=== PATIENT | female | born 1955 | race Caucasian/White ===

== ENCOUNTER 2017-02-27 19:21 | Inpatient (IN) | payer BC, OTHER ==
--- NOTE | ~2017-02-27 | DS ---
Discharge Summary [facility] [address] [place]. [address] NAME: EMMANUEL BAER : 51 STATUS : ADM IN [facility]#: [id number] AGE: 61 ADM/REG DATE : 02/27/17 MR#: [id number] REPORT SERV DATE: 03/04/17 DICTATED BY: LARRY LAN DATE: 03/04/17 REPORT STATUS : Draft TRANSCRIBED BY: MODL DATE: 03/04/17 ADMISSION DATE: 02/27/2017 DISCHARGE DATE: 03/04/2017 CONSULTANTS: 1. Tristan Tidwell M.D. 2. Chioma Brown MD, GI. 3. Grant Pulido MD, GI. DISCHARGE DIAGNOSES: 1. Obstructive jaundice with narrowing in the lower common bile duct, atypical cells. 2. Chronic obstructive pulmonary disease in a smoker and oxygen dependent on 3 liters. 3. Suspected obstructive sleep apnea with obesity hypoventilation syndrome. 4. Bipolar disorder. 5. Hypertension. 6. Peripheral arterial disease with previous right lower extremity bypass. 7. Recent abscess tooth, left posterior molar. 8. Obesity with body mass index of 43.9. 9. Previous medication induced encephalopathy. HISTORY: This patient presented to the emergency room at [facility] with a new onset of jaundice. This was painless jaundice. She also had very dark urine. When she came to the emergency room, she was noted to have elevated total bilirubin, as well as dilation of the common bile duct on CT scan. Because of this, she was referred to us for inpatient care. Specifically, when she came to the emergency room on 02/27/2017, her total bilirubin was 8.6, alkaline phosphatase was 572, ALT was 201, AST was 136. A CT in the emergency room on admission, revealed intrahepatic and extrahepatic biliary duct dilatation. The common bile duct was dilated up to 16 mm. No visible obstructing stone or mass was noted. Liver and spleen were upper normal size, 3.3 cm lipoma in the proximal transverse colon and bilateral nonobstructing small kidney stones. Chest x-ray revealed chronic scarring in the lung bases. Otherwise, unremarkable. She was admitted to our Medical Service. She had an MRCP done showing evidence of previous cholecystectomy, also confirming intra and extrahepatic biliary duct dilatation, and there was a question of some viscous bile versus a tiny stone in the common bile duct. There was a significant retroperitoneal adenopathy, reported to be in the left to the aorta, this is what is described in the body of the dictation, but in the conclusion the radiologist stated that the retroperitoneal adenopathy was on the right side. The patient underwent abdominal ultrasound showing hepatosplenomegaly, dilatation of the common duct, increased liver echo changes, and possibly early cirrhotic changes. The patient was seen in consultation by GI, Dr. Chioma Brown. The patient had acute hepatitis panel, it was negative for A, B, and C, her hepatitis B surface antibody was 6.66. Dr. Brown recommended ERCP and her partner Dr. Tidwell did the ERCP on 03/01/2017. He put in a 10-Eritrean 7 cm biliary stent. He did some brushings and biopsies. He then asked Dr. Grant Pulido to do an endoscopic ultrasound with possible biopsies and this was done on 03/02/2017. No pancreatic mass or cyst noted. Stent was noticed in the common bile duct and it extended into the bifurcation of the right Discharge Summary [address] [address] NAME: EMMANUEL BAER : 51 STATUS : ADM IN PAT#: [id number] AGE: 61 ADM/REG DATE : 02/27/17 MR#: [id number] REPORT SERV DATE: 03/04/17 DICTATED BY: LARRY LAN DATE: 03/04/17 REPORT STATUS : Draft TRANSCRIBED BY: MODKayleen DATE: 03/04/17 and left hepatic ducts. There was suggestion of either swelling or stricture of the lower third of the main bile duct with a discrete area of hypoechogenicity around the common bile duct stent prior to exiting the papilla. Fine-needle aspiration was performed. No lymphadenopathy was noted on this examination. There was diffuse wall thickening, endoscopically seen at the ampulla, possibly related to recent ERCP procedure. Pathology reports showed ampullary biopsies with benign small bowel mucosa. Bile duct brushings revealed significant atypia with overlapping mild acute inflammation. The focal atypia groups were stated to be in contrast to the benign mucosa and are significant and for which malignancy is suspected, but not diagnostic. The biopsies from the lower third of the main bile duct structure that were submitted by Dr. Pulido, the specimen had scant cellularity and was not diagnostic. GI recommends follow up in their office in the next two weeks. The patient's CA-19-9 was elevated at 570. The CEA level was 5.8. After stents placement the total bilirubin improved significantly. At its peak it was 10.8 on 03/01/2017, by 03/03/2017 it was down to 2.6. The alkaline phosphatase improved to 517, ALT improved to 105, and AST normalized at 31. The patient had no significant right upper quadrant pain. After her first ERCP, she had some musculoskeletal pain in her left upper quadrant that she could reproduce by turning, doing a sit up, or coughing. She is able the eat well, no nausea, no vomiting, no fever. We did keep her on antibiotics for a few days prior to and during these procedures. Blood cultures no growth. Urine culture 50,000 Klebsiella pneumoniae which is suspected to be a contaminant and asymptomatic bacteria. When the patient was taken off oxygen her O2 sats would drop. She states in the past, she was using oxygen at bedtime only and occasionally p.r.n. for shortness of breath. On 03/03/2017, at rest her O2 saturation 84% on room air, so, we put her on 3 L, and her O2 saturation improved to 93%. We therefore asked Case Management to notify her home oxygen supplier that she still needs oxygen, but now on a continuous basis at 3 L. Case management was also asked to help with medication cost and with transportation facilitation. At the time of discharge, she is ambulatory, feels comfortable, no abdominal pain, eating well. She knows about the importance of stopping smoking. She also was advised by me that if she continues to smoke that she must not do that while the oxygen is on and we talked about how she could have serious matthews to herself. She agrees to not do this. DISCHARGE MEDICATIONS: Norvasc 10 mg daily, gabapentin 800 mg q.i.d., Lamictal 150 mg b.i.d., lisinopril 20 mg daily added for blood pressure, Seroquel 400 mg every evening which is a chronic medicine, Spiriva one capsule inhaled daily, ProAir two puffs q.i.d. p.r.n. shortness of breath, Symbicort 160/4.5 two puffs twice a day, Tylenol 650 q.6 hours p.r.n. mild pain, [place] 5/325 q.i.d. p.r.n. more intense pain #25 no refill, glipizide 10 mg b.i.d., metformin 1000 mg b.i.d., Ativan 1 mg one or two p.o. q.12 hours p.r.n. anxiety or insomnia which is a chronic medicine for her, Lasix 40 mg daily p.r.n. edema, KCl 20 mEq daily if Lasix taken, Pravachol 20 mg every evening, lactulose 30 mL p.o. daily p.r.n. Discharge Summary [place] [id number] [place]. [address] NAME: EMMANUEL BAER : 51 STATUS : ADM IN [facility]#: [id number] AGE: 61 ADM/REG DATE : 02/27/17 MR#: [id number] REPORT SERV DATE: 03/04/17 DICTATED BY: ALRRY LAN DATE: 03/04/17 REPORT STATUS : Draft TRANSCRIBED BY: DENIS DATE: 03/04/17 constipation. FOLLOWUP: She is to follow up with her PCP, Dr. Rosalba Garza, in two weeks and with GI Dr. Tidwell also in two weeks. I spent 45 minutes today with the patient and with her discharge plan. BENSON/DENIS Larry Lan M.D. / [id number] CC: MD Flavio Segura II, II, M.D. Henry Paik, M.D. Oana L. Andreescu, M.D.
--- NOTE | ~2017-02-27 | EGD ---
EGD REPORT [facility] [address] [address] NAME: RAMONA BAER : 51 STATUS : ADM IN PAT#: [id number] AGE: 61 ADM/REG DATE : 02/27/17 MR#: [id number] REPORT SERV DATE: 03/02/17 DICTATED BY: GRANT LIMA DATE: 03/02/17 REPORT STATUS : Draft [facility]ED [facility]: [facility] DATE: 03/02/17 Endoscopy Center Patient Name: Ramona Baer Date of : 1955 Attending MD: GRANT LIMA MD Procedure Date No Time: 03/02/2017 Procedure: Upper EUS Indications: Suspected solid pancreatic neoplasm, Jaundice Medicines: General Anesthesia, Monitored Anesthesia Care Complications: No immediate complications. Estimated blood loss: Minimal. Procedure: Pre-Anesthesia Assessment: - ASA Grade Assessment: III - A patient with severe systemic disease. After obtaining informed consent, the endoscope was passed under direct vision. Throughout the procedure, the patient's blood pressure, pulse, and oxygen saturations were monitored continuously. The Endoscope was introduced through the mouth, and advanced to the second part of duodenum. The GIF [id number] was introduced through the mouth, and advanced to the second part of duodenum. The upper EUS was accomplished without difficulty. The patient tolerated the procedure well. Findings: Endosonographic Finding : There was no sign of significant endosonographic abnormality in the entire pancreas. No masses, no cysts. One stent was visualized endosonographically in the common bile duct. Extension of the stent was noted where the hepatic duct bifurcates into the right and left hepatic ducts. There was a suggestion of either swelling or a stricture in the lower third of the main bile duct with a discreet area of hypoechogenicity around the CBD stent prior to exiting the papilla. Fine needle aspiration was performed. Color Doppler imaging was utilized prior to needle puncture to confirm a lack of significant vascular structures within the needle path. Six passes were made with the 25 gauge needle using a transduodenal approach. Some passes were made with a stylet. A preliminary cytologic examination was not performed. Final cytology results are pending. Estimated blood loss was minimal. Endosonographic imaging of the visualized portion of the liver showed no abnormalities. No lymph nodes were visualized in the celiac region (level 20), perigastric region and peripancreatic region. Diffuse wall thickening was visualized endosonographically in the EGD REPORT [address] [address] NAME: RAMONA BAER : 51 STATUS : ADM IN [facility]#: [id number] AGE: 61 ADM/REG DATE : 02/27/17 MR#: [id number] REPORT SERV DATE: 03/02/17 DICTATED BY: GRANT LIMA DATE: 03/02/17 REPORT STATUS : Draft TRANSCRIBED BY: [employer] DATE: 03/02/17 ampulla, but no mass was seen. Possibly related to trauma from recent ERCP vs small adenomatous tissue. A limited doppler examination was performed and revealed no significant vascular abnormalities. Impression: - Normal pancreas - CBD stent with swelling vs stricture in the distal duct with hypoechogeneic tissue surrounding the stent - FNA for cytology - Enlarged ampulla... ERCP trauma vs adenomatous tissue - Previously biopsied - Otherwise normal examination Recommendation: - [facility] patient to [facility]. - Await cytology results. - Clear liquid diet today. Procedure Code(s): --- Professional --- 10393, Esophagogastroduodenoscopy, flexible, transoral; with transendoscopic ultrasound-guided intramural or transmural fine needle aspiration/biopsy(s) (includes endoscopic ultrasound examination of the esophagus, stomach, and either the duodenum or a surgically altered stomach where the jejunum is examined distal to the anastomosis) Diagnosis Code(s): --- Professional --- R93.2, Abnormal findings on diagnostic imaging of liver and biliary tract K83.8, Other specified diseases of biliary tract R17, Unspecified jaundice CPT copyright 2013 [employer]. All rights reserved. The codes documented in this report are preliminary and upon medical records coder review may be revised to meet current compliance requirements. Grant Lima MD GRANT LIMA MD 03/02/2017 9:57 AM This report has been signed electronically. Number of Addenda: 0 Note Initiated On: 03/02/2017 8:07 AM Scope Withdrawal Time 0 hours 0 minutes 0 seconds EGD REPORT [facility] [address] [place] [address] NAME: RAMONA BAER : 51 STATUS : ADM IN PAT#: [id number] AGE: 61 ADM/REG DATE : 02/27/17 MR#: [id number] REPORT SERV DATE: 03/02/17 DICTATED BY: GRANT LIMA DATE: 03/02/17 REPORT STATUS : Draft [facility]ANSCRIBED BY: [facility] DATE: 03/02/17 [address] [place] [address]
--- NOTE | ~2017-02-27 | HP ---
History And Physical [place] [id number] [facility] [place]. [address] NAME: EMMANUEL BAER : 51 STATUS : ADM IN [facility]#: [id number] AGE: 61 ADM/REG DATE : 02/27/17 MR#: [id number] REPORT SERV DATE: 02/27/17 DICTATED BY: RAMIREZ LOVING DATE: 02/27/17 REPORT STATUS : Draft TRANSCRIBED BY: MODL DATE: 02/27/17 DATE OF ADMISSION: 02/27/2017 CHIEF COMPLAINT: Yellow eyes and skin. HISTORY OF PRESENT ILLNESS: This is a 61-year-old female, who presents to the emergency room at [facility] with the above-mentioned complaint. History is obtained from the patient and reviewing data available on the [employer] system. According to Ms Baer, she had been in her usual state of health until today in the afternoon when a friend came over and knocked on her door. She opened the door and the friend looked at her twice and was concerned that her eyes looked yellow. She checked in a mirror and indeed she was and her skin appeared to be slightly yellowish as well. During this time, she has not had any nausea or vomiting, no other signs of jaundice, did not have any pruritus or pain in her abdomen. On looking back, she noticed that her urine had appeared brownish in color. She has had no other symptoms at all. She then decided to come to the emergency room to be evaluated. In the emergency room, initial workup revealed jaundice, and she had intrahepatic and extrahepatic dilatation of the common bile duct up to [address] scan of her abdomen and pelvis. There was no visible obstruction. Hospitalist Service is asked to admit her for further evaluation and treatment. At the time of my evaluation, she denied any chest pain or palpitations. She had no orthopnea. She had no cough, hemoptysis, night sweats, or weight loss. She denied any recent falls or loss of consciousness. She did not have any fevers or chills at home. Denied any nausea, vomiting, diarrhea, hematemesis, hematochezia, or hematuria. No other history of recent travel or exposures other than those mentioned above. PAST MEDICAL HISTORY: Significant for history of COPD with tobacco use currently, history of bipolar disorder, diabetes mellitus with A1c of 7.8, history of essential hypertension, peripheral arterial disease with femoral popliteal bypass in the right lower extremity. SOCIAL HISTORY: She has about 80-pack year history of smoking and continues to do so, although she says she has cut back now a days. She used to drink heavily, but has not had any in about 30 to 40 years now. She denies any recreational drug use. FAMILY HISTORY: Noncontributory. MEDICATIONS: At home are reviewed by me in the chart today and reordered by me. REVIEW OF SYSTEMS: As in history of present illness. All other systems were reviewed in detail and are quite unremarkable. PHYSICAL EXAMINATION: History And Physical [address] [address] NAME: EMMANUEL BAER : 51 STATUS : ADM IN [facility]#: [id number] AGE: 61 ADM/REG DATE : 02/27/17 MR#: [id number] REPORT SERV DATE: 02/27/17 DICTATED BY: RAMIREZ LOVING DATE: 02/27/17 REPORT STATUS : Draft TRANSCRIBED BY: DENIS DATE: 02/27/17 GENERAL: This is a pleasant 61-year-old, not in any acute distress. HEENT: Her head is atraumatic, normocephalic. She is alert, awake, and oriented to time, place, and person. Her pupils are equal, reacting to light and accommodating. External ocular muscles are intact. Membranes are moist and pink. Skin is yellow and sclerae are icteric as well. NECK: Supple with no jugular venous distention, lymphadenopathy, or thyromegaly. LUNGS: Clear to auscultation with no wheezes, rubs, or crackles. HEART: Heart sounds are regular with no murmurs, rubs, or gallops. ABDOMEN: Soft, nontender. Bowel sounds are present. EXTREMITIES: Show no cyanosis, clubbing, or edema. NEUROLOGIC: Grossly intact. No focal sensory or motor deficits. Higher functions appear intact. Gait is not examined. VITAL SIGNS: Her vital signs today show a temperature of 98 degrees Fahrenheit, pulse 80, respirations 16 a minute, blood pressure is 105/51, oxygen saturations are 93% on room air. LABORATORY DATA: Reviewed on the [employer] system showed a sodium of 139, potassium was 3.1, chloride 106, and CO2 of 27, BUN was 20 with a creatinine of 1.16 which is slightly above her baseline. Her GFR is about 50 today. Glucose was 212 and magnesium was 1.8. Her albumin was 3.0 today, direct bilirubin was 7.3, indirect 1.3, total bilirubin was 8.6, alkaline phosphatase 572, ALT was 201, ALT 136. Her lipase today was 57 with an amylase of 17. CBC was within normal limits. Her prothrombin time was 13.9 with an INR of 1.1. Urinalysis showed small bilirubin, urobilinogen was 2.0, large leukocyte esterase, nitrite was negative, there was 8 wbc's as well. UDS was positive for benzodiazepines. Films of the CT scan of her abdomen and pelvis were reviewed by me on the PACS today and interpreted by me. Official Radiology comments were also reviewed. There is intrahepatic and extrahepatic bile duct dilatation and the CBD measures 16 mm without any visible obstruction. Please see the full report. Films of the chest x-ray were reviewed by me on the PACS today and interpreted by me. Per my interpretation, there is no acute pulmonary process at this time. There is no cardiomegaly. IMPRESSION: 1. Jaundice. 2. Acute hepatitis. 3. Obesity with a body mass index of 43.9. 4. Obesity hypoventilation syndrome. 5. Chronic obstructive pulmonary disease. 6. Tobacco use. 7. Bipolar disorder. 8. Diabetes mellitus with a history of A1c of 7.8. 9. Essential hypertension. 10.Peripheral arterial disease with femoral popliteal bypass in the right lower extremity. PLAN: We will admit Ms Baer to Hospitalist Service with defensive monitoring today. We will keep her n.p.o. for now, consult Gastroenterology to see her in the morning. We will History And Physical [address] [address] NAME: EMMANUEL BAER : 51 STATUS : ADM IN [facility]#: [id number] AGE: 61 ADM/REG DATE : 02/27/17 MR#: [id number] REPORT SERV DATE: 02/27/17 DICTATED BY: RAMIREZ LOVING DATE: 02/27/17 REPORT STATUS : Draft TRANSCRIBED BY: MODL DATE: 02/27/17 also get an MRCP. We will go ahead and get a hepatitis panel tonight. She did live with a gentleman who of hepatitis C and she had lived with him for 20 years. She said she had been vaccinated with hepatitis B vaccination and hepatitis A. We will get a hepatitis panel tonight and also check her titers. Meanwhile, we will maximize her bronchodilator treatments, continue supplemental oxygen therapy. Continue other home medications and treatments at this time. We will also control blood sugars with NovoLog given subcutaneously per sliding scale today. She will be placed on unfractionated heparin for DVT prophylaxis while here. Please see today's orders for all the details. I have discussed the above plans with the patient. Her questions were answered and she is agreeable to the above recommendations. Hospitalist Service will be following her during her stay here. /DENIS Ramirez Loving M.D. / [id number] CC: Mendoza Rocha II, MD
--- NOTE | ~2017-02-27 | OP ---
Record Of Operation [facility] [address] [place]. [address] NAME: EMMANUEL BAER : 51 STATUS : ADM IN [facility]#: [id number] AGE: 61 ADM/REG DATE : 02/27/17 MR#: [id number] REPORT SERV DATE: 03/02/17 DICTATED BY: TRISTAN TIDWELL DATE: 03/01/17 REPORT STATUS : Draft TRANSCRIBED BY: MODL DATE: 03/01/17 DATE OF PROCEDURE: 03/01/2017 PROCEDURES: ERCP, sphincterotomy, cytology, biopsy, and stent placement. INDICATION: The patient with obstructive jaundice. ENDOSCOPIST: Tristan Tidwell M.D. PREMEDICATION: Given by the anesthesiologist. Please refer to their notes. DESCRIPTION OF PROCEDURE: After obtaining informed consent, the patient was sedated and intubated to protect the airway. The patient was then placed on the fluoroscopy table. Olympus duodenoscope was introduced into the oropharynx, was advanced under visual guidance into the into the esophagus, stomach, and duodenum. In the second portion of the duodenum, papilla was seen. A small trickle of blood was seen exiting the papilla. Using a glide- tome and a guidewire, we were able to cannulate the common bile duct on initial trial. Injection of contrast showed markedly dilated common bile duct, common hepatic duct, and intrahepatic ducts. Possibly, in the mid portion of the common bile duct, the diameter appeared to be approximately 1.5 to 1.8 cm. In the distal common bile duct, there was a stricture, which appeared to be approximately 4 cm in length from the ampulla to the distal common bile duct. Proximal to the stricture was once again dilated common bile duct. At this point, a sphincterotomy was performed, followed by balloon obstructive cholangiogram. Balloon was dilated and swept through the bile duct until it came down to the proximal end of the stricture. Balloon was deflated and then pulled back into the ampulla. The distance between the point where the balloon could be dilated and the ampulla was approximately 4 cm indicating a 4 cm length stricture. At this point, balloon catheter was removed and brush cytology was used to obtain cytologic specimen of the distal common bile duct stricture. Once this was performed, biliary stent was placed. Of note, no filling defects were seen in the common bile duct. A 10-Ukrainian 7 cm biliary stent was placed using the guidewire, placement was successful, bile was seen flowing out into the duodenum. Lastly, biopsy forceps was used to biopsy the ampulla around the stent to rule out ampullary carcinoma. IMPRESSION: Distal common bile duct stricture, most consistent with pancreatic lesion. The biliary stent now placed. Obtain EUS for further diagnosis of the pancreatic tumor. HP/MODL Tristan Tidwell M.D. / [id number] CC: Record Of Operation [address] [address] NAME: EMMANUEL BAER : 51 STATUS : ADM IN [facility]#: [id number] AGE: 61 ADM/REG DATE : 02/27/17 MR#: [id number] REPORT SERV DATE: 03/02/17 DICTATED BY: TRISTAN TIDWELL DATE: 03/01/17 REPORT STATUS : Draft TRANSCRIBED BY: MODL DATE: 03/01/17 Mendoza Rocha II, MD NO PCP
--- NOTE | ~2017-02-27 | CN ---
Consultation Report [facility] [address] [place]. [address] NAME: EMMANUEL BAER : 51 STATUS : ADM IN [facility]#: [id number] AGE: 61 ADM/REG DATE : 02/27/17 MR#: [id number] REPORT SERV DATE: 03/01/17 DICTATED BY: HARPREET ALMANZAR DATE: 03/01/17 REPORT STATUS : Draft TRANSCRIBED BY: MODL DATE: 03/01/17 GI CONSULTATION DATE OF CONSULTATION: 02/28/2017 HISTORY OF PRESENT ILLNESS: Ms. Baer is a 61-year-old white female with a history of diabetes, obesity, COPD, hypertension, who presents with jaundice. She has elevated liver enzymes which were bilirubin of 8.6, AST 136, ALT 201, and alk phos 572. They have come down minimally to 8.2, 128, 178, and 488. Today, her INR is 1.1, platelets 165, creatinine 0.97. She denies any known history of liver disease; however, her enzymes have been normal previously. CT scan showed intra and extrahepatic biliary dilatation and common bile duct was measured to be 16 mm in size. She is status post cholecystectomy. MRCP had been done, which did not show any mass, but there was intra and extrahepatic biliary dilatation, which the radiologist interpreted as possibly being physiologic with no active obstructive disease at this time. There were some small intraluminal defect seen in the distal common bile duct. Abdominal ultrasound, which was taken, but still pending at this time. She has been afebrile. White count is normal. Viral hepatitis panel was drawn and is pending. She did have a close contact with a viral hepatitis history. PAST MEDICAL HISTORY: Obesity; diabetes, A1c 7.8; COPD; hypertension; dyslipidemia; peripheral arterial disease; bipolar disorder. PAST SURGICAL HISTORY: Femoral-popliteal bypass, right lower extremity cholecystectomy. SOCIAL HISTORY: Tobacco use. Former alcohol. No drug abuse. FAMILY HISTORY: No history of liver disease. MEDICATIONS: Reviewed. ALLERGIES: REVIEWED. PHYSICAL EXAMINATION: VITAL SIGNS: The patient is afebrile. Vital signs are stable. GENERAL: The patient is awake, alert, and oriented x3. Obese, in no acute distress. HEENT: Atraumatic, normocephalic. Icteric sclerae. The patient is markedly jaundiced. CARDIAC: S1, S2. CHEST: Clear. ABDOMEN: Obese, soft, nontender, and nondistended. Bowel sounds normoactive. LABORATORY DATA: Show WBC 3.7, hemoglobin 12.9, hematocrit 36.5, platelets 165. INR is 1.1. Sodium 143, potassium 3, chloride 10.7, bicarb 28, BUN 17, creatinine 0.97, and glucose 131. IMPRESSION AND PLAN: Elevated liver enzymes, jaundice possibly related to obstructive Consultation Report [address] [place]. [address] NAME: EMMANUEL BAER : 51 STATUS : ADM IN PAT#: [id number] AGE: 61 ADM/REG DATE : 02/27/17 MR#: [id number] REPORT SERV DATE: 03/01/17 DICTATED BY: HARPREET ALMANZAR DATE: 03/01/17 REPORT STATUS : Draft TRANSCRIBED BY: DENIS DATE: 03/01/17 process given the pattern of her liver enzymes as well as these abnormal findings seen on imaging, although there is no active obstruction. She may have intermittent small stones as seen on the MRCP represented by these intraluminal defects. We will follow up on the abdominal ultrasound and will trend liver enzymes. If they do continue to go up or the patient has fever or elevated white count, we will consider an ERCP for further evaluation and treatment. We will discuss with Dr. Tidwell who would be performing ERCP. FAROOQ/DENIS Harpreet Almanzar MD / [id number] CC: Mendoza Rocha II, MD
[~2017-02-27 19:21] MED LIST: *UNABLE1; ATIVAN2 MG PO; ATV1 PO; GLUCPH PO; KLOR-CON M2020 MEQ PO; L40 PO; LAMICTAL150 MG PO; LEVAQUIN750 MG PO; LOTRIMIN AF12 EX; MACROBID PO; NEUR800 PO; NORV10 PO; P10 PO; PRAVAC PO; PROAIR HFA INH; PROVHFA INH; REMERON30 MG PO; SEROQUEL XR150 MG PO; SEROQUEL XR400 MG PO; SPIRIVA INH; SYMBICORT 160/41 INH INH; T PO; [UNRECOGNIZED DRUG - OTHER] V; [UNRECOGNIZED DRUG - OTHER] V
[2017-02-27 20:11] LABS: ACETAMINOPHEN LEVEL (TYLENOL) < 2.0 MCG/ML (10.0-20.0); ALCOHOL < 10 MG/DL (0); SALICYLATE < 1.7 MG/DL (-)
[2017-02-27 20:18] LABS: AMPHETAMINES (NOT ORD) NEG (NEG); BARBITURATES (NOT ORDERED NEG (NEG); BENZODIAZEPINES (NOT ORD) POS (NEG); CANNABINOIDS (THC) NEG (NEG); COCAINE (NOT ORDERED) NEG (NEG); OPIATES NEG (NEG); PHENCYCLIDINE(PCP) NEG (NEG)
[2017-02-27 20:19] LABS: TRICYCLICS NEG (NEG)
[2017-02-27] MEDS ORDERED: CLEOCIN300 MG PO (20:28)
[2017-02-27] MEDS ORDERED: ATV1 PO (20:29)
[2017-02-27] MEDS ORDERED: NEUR800 PO (20:29)
[2017-02-27] MEDS ORDERED: NORV10 PO (20:30)
[2017-02-27] MEDS ORDERED: PROAIR HFA INH (20:30)
[2017-02-27] MEDS ORDERED: LAMICTAL150 MG PO (20:30)
[2017-02-27] MEDS ORDERED: BC HEADACHE PO (20:31)
[2017-02-27] MEDS ORDERED: SYMBICORT 160/41 INH INH (20:38)
[2017-02-27] MEDS ORDERED: SEROQUEL XR400 MG PO (20:38)
[2017-02-27] MEDS ORDERED: PRAVAC PO (20:38)
[2017-02-27] MEDS ORDERED: GLUCOTRO10 PO (20:38)
[2017-02-27] MEDS ORDERED: GLUCOPHAGE1000 MG PO (20:38)
[2017-02-27] MEDS ORDERED: SPIRIVA INH (20:39)
[2017-02-27] MEDS ORDERED: KDUR20 PO (20:39)
[2017-02-27] MEDS ORDERED: L40 PO (20:39)
[2017-02-27 21:01] LABS: BASOPHILS 0.4 %; BASOPHILS ABSOLUTE 0.02 10/3/uL (0.0-0.16); EOSINOPHILS 2.4 %; EOSINOPHILS ABSOLUTE 0.13 10/3/uL (0.0-0.53); ER CBC TAT 0 Hrs 09 Mins; HEMATOCRIT 40.5 % (36.0-48.0); HEMOGLOBIN 13.7 g/dL (12.0-16.0); IMMATURE GRANULOCYTES 0.2 %; IMMATURE GRANULOCYTES ABSOLUTE 0.01 10/3/uL (0.0-0.11); LYMPHOCYTES ABSOLUTE 0.82 10/3/uL (0.67-4.30); MEAN CORPUS HGB CONC 33.8 g/dL (32.0-36.0); MEAN CORPUSCULAR HEMOGLOB 30.4 pg (26.0-34.0); MEAN CORPUSCULAR VOLUME 89.8 fL (80-100); MEAN PLATELET VOLUME 10.4 fL (9.2-13.0); MONOCYTES 5.9 %; MONOCYTES ABSOLUTE 0.32 10/3/uL (0.21-1.20); NEUTROPHILS 76.1 %; NEUTROPHILS ABSOLUTE 4.15 10/3/uL (2.02-8.40); PLATELET COUNT 207 10/3/uL (150-400); RBC DISTRIBUTION WIDTH 16.7 % (12.0-16.0); RED CELL COUNT 4.51 10/6/uL (4.0-5.6); WHITE BLOOD CELLS 5.5 10/3/uL (4.5-10.5)
[2017-02-27 21:02] LABS: MANUAL DIFF NO %
[2017-02-27 21:11] LABS: PARTIAL THROMBO TIME 26.6 SEC (22.5-37.2)
[2017-02-27 21:12] LABS: INTERNATIONAL NORMAL RATI 1.1 UNITS (-); PROTIME (NOT ORD) 13.9 SEC (12.0-14.5)
[2017-02-27 21:21] LABS: ALKALINE PHOSPHATASE 572 U/L (45-117); BUN (BLOOD UREA NITROGEN) 20 MG/DL (6-23); CALCIUM, SERUM 8.9 MG/DL (8.5-10.4); CHLORIDE, SERUM 106 MMOL/L (96-112); CO2 (CARBON DIOXIDE) 27 MMOL/L (24-34); CREATININE 1.16 MG/DL (0.55-1.02); DIRECT BILIRUBIN 7.3 MG/DL (0.0-0.4); GFR AFRICAN AMERICAN 58 ML/MIN (>=60); GFR NON AFRICAN AMERICAN 50 ML/MIN (>=60); GLUCOSE, SERUM 212 MG/DL (60-99); INDIRECT BILIRUBIN(NOT ORDER) 1.3 MG/DL (0.1-0.9); POTASSIUM, SERUM 3.1 MMOL/L (3.5-5.3); SGOT(AST) 136 U/L (5-40); SGPT(ALT) 201 U/L (5-65); SODIUM, SERUM 139 MMOL/L (135-148); TOTAL BILIRUBIN 8.6 MG/DL (0-1.2); TOTAL PROTEIN 6.8 G/DL (6.0-8.5)
[2017-02-27 21:24] LABS: ASCORBIC ACID (UR NOT ORDER) NEG (NEG); BILIRUBIN, URINE SMALL (NEG); ER URINALYSIS TAT 0 Hrs 12 Mins; KETONE, URINE NEGATIVE (NEG); LEUKOCYTE ESTERASE(NOT OR LARGE (NEG); NITRITE (URINE) NEG (NEG); WBC (NOT ORDERED) (RFLEX) 8 (0-5)
[2017-02-28 05:49] LABS: BASOPHILS 0.8 %; BASOPHILS ABSOLUTE 0.03 10/3/uL (0.0-0.16); EOSINOPHILS ABSOLUTE 0.15 10/3/uL (0.0-0.53); HEMATOCRIT 36.5 % (36.0-48.0); HEMOGLOBIN 12.4 g/dL (12.0-16.0); IMMATURE GRANULOCYTES 0.3 %; IMMATURE GRANULOCYTES ABSOLUTE 0.01 10/3/uL (0.0-0.11); LYMPHOCYTES 25.5 %; LYMPHOCYTES ABSOLUTE 0.95 10/3/uL (0.67-4.30); MEAN CORPUSCULAR HEMOGLOB 30.3 pg (26.0-34.0); MEAN CORPUSCULAR VOLUME 89.2 fL (80-100); MONOCYTES 9.9 %; MONOCYTES ABSOLUTE 0.37 10/3/uL (0.21-1.20); NEUTROPHILS 59.5 %; NEUTROPHILS ABSOLUTE 2.21 10/3/uL (2.02-8.40); PLATELET COUNT 165 10/3/uL (150-400); RBC DISTRIBUTION WIDTH 16.9 % (12.0-16.0); RED CELL COUNT 4.09 10/6/uL (4.0-5.6); WHITE BLOOD CELLS 3.7 10/3/uL (4.5-10.5)
[2017-02-28 05:50] LABS: MANUAL DIFF NO %
[2017-02-28 06:04] LABS: A/G RATIO 0.8 (0.7-1.9); ALBUMIN 2.6 G/DL (3.5-5.0); BUN (BLOOD UREA NITROGEN) 17 MG/DL (6-23); CALCIUM, SERUM 8.6 MG/DL (8.5-10.4); CHLORIDE, SERUM 107 MMOL/L (96-112); CO2 (CARBON DIOXIDE) 28 MMOL/L (24-34); CREATININE 0.97 MG/DL (0.55-1.02); GFR AFRICAN AMERICAN 72 ML/MIN (>=60); GFR NON AFRICAN AMERICAN 62 ML/MIN (>=60); GLOBULIN 3.1 G/DL (2.5-4.1); PHOSPHORUS, SERUM 3.3 MG/DL (2.5-4.5); SGOT(AST) 128 U/L (5-40); SGPT(ALT) 178 U/L (5-65); SODIUM, SERUM 143 MMOL/L (135-148); TOTAL BILIRUBIN 8.2 MG/DL (0-1.2); TOTAL PROTEIN 5.7 G/DL (6.0-8.5)
[2017-02-28 06:05] LABS: ALKALINE PHOSPHATASE 488 U/L (45-117); DIRECT BILIRUBIN 6.8 MG/DL (0.0-0.4); GLUCOSE, SERUM 131 MG/DL (60-99); INDIRECT BILIRUBIN(NOT ORDER) 1.4 MG/DL (0.1-0.9)
[2017-03-01 05:58] LABS: BASOPHILS ABSOLUTE 0.03 10/3/uL (0.0-0.16); EOSINOPHILS 4.3 %; EOSINOPHILS ABSOLUTE 0.13 10/3/uL (0.0-0.53); HEMATOCRIT 37.5 % (36.0-48.0); HEMOGLOBIN 12.3 g/dL (12.0-16.0); IMMATURE GRANULOCYTES 0.3 %; IMMATURE GRANULOCYTES ABSOLUTE 0.01 10/3/uL (0.0-0.11); LYMPHOCYTES 24.3 %; LYMPHOCYTES ABSOLUTE 0.73 10/3/uL (0.67-4.30); MEAN CORPUS HGB CONC 32.8 g/dL (32.0-36.0); MEAN CORPUSCULAR HEMOGLOB 29.8 pg (26.0-34.0); MEAN CORPUSCULAR VOLUME 90.8 fL (80-100); MEAN PLATELET VOLUME 9.9 fL (9.2-13.0); MONOCYTES ABSOLUTE 0.24 10/3/uL (0.21-1.20); NEUTROPHILS 62.1 %; NEUTROPHILS ABSOLUTE 1.87 10/3/uL (2.02-8.40); PLATELET COUNT 161 10/3/uL (150-400); RBC DISTRIBUTION WIDTH 17.3 % (12.0-16.0); RED CELL COUNT 4.13 10/6/uL (4.0-5.6)
[2017-03-01 06:07] LABS: MANUAL DIFF NO %
[2017-03-01 06:22] LABS: A/G RATIO 0.8 (0.7-1.9); ALBUMIN 2.6 G/DL (3.5-5.0); BUN (BLOOD UREA NITROGEN) 13 MG/DL (6-23); CALCIUM, SERUM 8.5 MG/DL (8.5-10.4); CHLORIDE, SERUM 110 MMOL/L (96-112); CO2 (CARBON DIOXIDE) 27 MMOL/L (24-34); CREATININE 0.69 MG/DL (0.55-1.02); DIRECT BILIRUBIN 7.7 MG/DL (0.0-0.4); GFR AFRICAN AMERICAN 107 ML/MIN (>=60); GFR NON AFRICAN AMERICAN 93 ML/MIN (>=60); GLOBULIN 3.3 G/DL (2.5-4.1); GLUCOSE, SERUM 159 MG/DL (60-99); POTASSIUM, SERUM 3.5 MMOL/L (3.5-5.3); SGOT(AST) 117 U/L (5-40); SGPT(ALT) 167 U/L (5-65); SODIUM, SERUM 141 MMOL/L (135-148); TOTAL PROTEIN 5.9 G/DL (6.0-8.5)
[2017-03-01 06:23] LABS: ALKALINE PHOSPHATASE 505 U/L (45-117); CEA 5.8 NG/ML; INDIRECT BILIRUBIN(NOT ORDER) 1.5 MG/DL (0.1-0.9); TOTAL BILIRUBIN 9.2 MG/DL (0-1.2)
[2017-03-01 12:30] LABS: INTERNATIONAL NORMAL RATI 1.1 UNITS (-); PROTIME (NOT ORD) 13.7 SEC (12.0-14.5)
[2017-03-01 13:19] LABS: HEP B SUR AB QUANTITATIVE 6.66 mIU/mL (>=10.0)
[2017-03-01 13:30] LABS: HEPATITIS B SURFACE ANTIGEN NON-REACTIVE (NON-REACT)
[2017-03-01 13:58] LABS: HEPATITIS B CORE AB IGM NON-REACTIVE (NON-REAC); HEPATITIS C ANTIBODY NON-REACTIVE (NON-REACT)
[2017-03-01 14:00] LABS: HEP A ANTIBODY IGM NON-REACTIVE (NON-REACT)
[2017-03-01 19:38] LABS: BASOPHILS 0.6 %; BASOPHILS ABSOLUTE 0.04 10/3/uL (0.0-0.16); EOSINOPHILS 1.8 %; EOSINOPHILS ABSOLUTE 0.11 10/3/uL (0.0-0.53); HEMATOCRIT 40.8 % (36.0-48.0); HEMOGLOBIN 13.6 g/dL (12.0-16.0); IMMATURE GRANULOCYTES 0.5 %; IMMATURE GRANULOCYTES ABSOLUTE 0.03 10/3/uL (0.0-0.11); LYMPHOCYTES 10.4 %; LYMPHOCYTES ABSOLUTE 0.64 10/3/uL (0.67-4.30); MANUAL DIFF NO %; MEAN CORPUS HGB CONC 33.3 g/dL (32.0-36.0); MEAN CORPUSCULAR HEMOGLOB 30.3 pg (26.0-34.0); MEAN CORPUSCULAR VOLUME 90.9 fL (80-100); MEAN PLATELET VOLUME 10.2 fL (9.2-13.0); MONOCYTES 4.5 %; MONOCYTES ABSOLUTE 0.28 10/3/uL (0.21-1.20); NEUTROPHILS 82.2 %; NEUTROPHILS ABSOLUTE 5.07 10/3/uL (2.02-8.40); PLATELET COUNT 176 10/3/uL (150-400); RBC DISTRIBUTION WIDTH 17.5 % (12.0-16.0); RED CELL COUNT 4.49 10/6/uL (4.0-5.6); WHITE BLOOD CELLS 6.2 10/3/uL (4.5-10.5)
[2017-03-01 20:13] LABS: ALBUMIN 3.1 G/DL (3.5-5.0); BUN (BLOOD UREA NITROGEN) 7 MG/DL (6-23); CALCIUM, SERUM 9.2 MG/DL (8.5-10.4); CHLORIDE, SERUM 104 MMOL/L (96-112); CO2 (CARBON DIOXIDE) 28 MMOL/L (24-34); CREATININE 0.81 MG/DL (0.55-1.02); GFR AFRICAN AMERICAN 90 ML/MIN (>=60); GFR NON AFRICAN AMERICAN 77 ML/MIN (>=60); GLUCOSE, SERUM 191 MG/DL (60-99); POTASSIUM, SERUM 3.8 MMOL/L (3.5-5.3); SGPT(ALT) 195 U/L (5-65); SODIUM, SERUM 139 MMOL/L (135-148); TOTAL PROTEIN 7.1 G/DL (6.0-8.5)
[2017-03-01 20:14] LABS: A/G RATIO 0.8 (0.7-1.9); ALKALINE PHOSPHATASE 635 U/L (45-117); SGOT(AST) 128 U/L (5-40); TOTAL BILIRUBIN 10.8 MG/DL (0-1.2)
[2017-03-02 07:08] LABS: BASOPHILS 0.2 %; BASOPHILS ABSOLUTE 0.01 10/3/uL (0.0-0.16); EOSINOPHILS 2.6 %; EOSINOPHILS ABSOLUTE 0.12 10/3/uL (0.0-0.53); HEMATOCRIT 37.8 % (36.0-48.0); HEMOGLOBIN 12.3 g/dL (12.0-16.0); IMMATURE GRANULOCYTES 0.2 %; IMMATURE GRANULOCYTES ABSOLUTE 0.01 10/3/uL (0.0-0.11); LYMPHOCYTES 19.6 %; LYMPHOCYTES ABSOLUTE 0.91 10/3/uL (0.67-4.30); MEAN CORPUS HGB CONC 32.5 g/dL (32.0-36.0); MEAN CORPUSCULAR HEMOGLOB 30.1 pg (26.0-34.0); MEAN CORPUSCULAR VOLUME 92.6 fL (80-100); MEAN PLATELET VOLUME 10.6 fL (9.2-13.0); MONOCYTES ABSOLUTE 0.28 10/3/uL (0.21-1.20); NEUTROPHILS 71.4 %; NEUTROPHILS ABSOLUTE 3.32 10/3/uL (2.02-8.40); PLATELET COUNT 168 10/3/uL (150-400); RBC DISTRIBUTION WIDTH 17.6 % (12.0-16.0); RED CELL COUNT 4.08 10/6/uL (4.0-5.6); WHITE BLOOD CELLS 4.7 10/3/uL (4.5-10.5)
[2017-03-02 07:10] LABS: MANUAL DIFF NO %
[2017-03-02 07:25] LABS: A/G RATIO 0.8 (0.7-1.9); ALBUMIN 2.7 G/DL (3.5-5.0); ALKALINE PHOSPHATASE 514 U/L (45-117); BUN (BLOOD UREA NITROGEN) 7 MG/DL (6-23); CALCIUM, SERUM 8.7 MG/DL (8.5-10.4); CHLORIDE, SERUM 103 MMOL/L (96-112); CO2 (CARBON DIOXIDE) 30 MMOL/L (24-34); CREATININE 0.72 MG/DL (0.55-1.02); GFR AFRICAN AMERICAN 103 ML/MIN (>=60); GFR NON AFRICAN AMERICAN 89 ML/MIN (>=60); GLOBULIN 3.5 G/DL (2.5-4.1); GLUCOSE, SERUM 139 MG/DL (60-99); POTASSIUM, SERUM 3.7 MMOL/L (3.5-5.3); SGOT(AST) 69 U/L (5-40); SGPT(ALT) 138 U/L (5-65); SODIUM, SERUM 139 MMOL/L (135-148); TOTAL BILIRUBIN 3.7 MG/DL (0-1.2); TOTAL PROTEIN 6.2 G/DL (6.0-8.5)
[2017-03-03 07:51] LABS: BASOPHILS 0.5 %; BASOPHILS ABSOLUTE 0.03 10/3/uL (0.0-0.16); EOSINOPHILS 3.5 %; HEMATOCRIT 37.1 % (36.0-48.0); IMMATURE GRANULOCYTES 0.2 %; IMMATURE GRANULOCYTES ABSOLUTE 0.01 10/3/uL (0.0-0.11); LYMPHOCYTES 19.5 %; LYMPHOCYTES ABSOLUTE 1.12 10/3/uL (0.67-4.30); MEAN CORPUS HGB CONC 32.3 g/dL (32.0-36.0); MEAN CORPUSCULAR VOLUME 92.8 fL (80-100); MEAN PLATELET VOLUME 10.2 fL (9.2-13.0); MONOCYTES 6.3 %; MONOCYTES ABSOLUTE 0.36 10/3/uL (0.21-1.20); NEUTROPHILS ABSOLUTE 4.01 10/3/uL (2.02-8.40); PLATELET COUNT 158 10/3/uL (150-400); RBC DISTRIBUTION WIDTH 17.2 % (12.0-16.0); WHITE BLOOD CELLS 5.7 10/3/uL (4.5-10.5)
[2017-03-03 07:55] LABS: MANUAL DIFF NO %
[2017-03-03 08:07] LABS: A/G RATIO 0.8 (0.7-1.9); ALBUMIN 2.8 G/DL (3.5-5.0); ALKALINE PHOSPHATASE 417 U/L (45-117); BUN (BLOOD UREA NITROGEN) 15 MG/DL (6-23); CALCIUM, SERUM 8.7 MG/DL (8.5-10.4); CHLORIDE, SERUM 102 MMOL/L (96-112); CO2 (CARBON DIOXIDE) 34 MMOL/L (24-34); CREATININE 0.74 MG/DL (0.55-1.02); GFR AFRICAN AMERICAN 100 ML/MIN (>=60); GFR NON AFRICAN AMERICAN 86 ML/MIN (>=60); GLOBULIN 3.6 G/DL (2.5-4.1); GLUCOSE, SERUM 148 MG/DL (60-99); POTASSIUM, SERUM 3.7 MMOL/L (3.5-5.3); SGOT(AST) 31 U/L (5-40); SGPT(ALT) 105 U/L (5-65); SODIUM, SERUM 139 MMOL/L (135-148); TOTAL BILIRUBIN 2.6 MG/DL (0-1.2); TOTAL PROTEIN 6.4 G/DL (6.0-8.5)
[2017-03-04 06:24] LABS: BASOPHILS 0.5 %; BASOPHILS ABSOLUTE 0.02 10/3/uL (0.0-0.16); EOSINOPHILS 3.2 %; EOSINOPHILS ABSOLUTE 0.13 10/3/uL (0.0-0.53); HEMATOCRIT 35.7 % (36.0-48.0); HEMOGLOBIN 11.5 g/dL (12.0-16.0); IMMATURE GRANULOCYTES 0.5 %; IMMATURE GRANULOCYTES ABSOLUTE 0.02 10/3/uL (0.0-0.11); LYMPHOCYTES 22.9 %; LYMPHOCYTES ABSOLUTE 0.94 10/3/uL (0.67-4.30); MEAN CORPUS HGB CONC 32.2 g/dL (32.0-36.0); MEAN CORPUSCULAR HEMOGLOB 29.9 pg (26.0-34.0); MEAN PLATELET VOLUME 10.5 fL (9.2-13.0); MONOCYTES ABSOLUTE 0.33 10/3/uL (0.21-1.20); NEUTROPHILS 64.9 %; NEUTROPHILS ABSOLUTE 2.67 10/3/uL (2.02-8.40); PLATELET COUNT 163 10/3/uL (150-400); RBC DISTRIBUTION WIDTH 16.6 % (12.0-16.0); RED CELL COUNT 3.84 10/6/uL (4.0-5.6); WHITE BLOOD CELLS 4.1 10/3/uL (4.5-10.5)
[2017-03-04 06:25] LABS: MANUAL DIFF NO %
[2017-03-04 06:33] LABS: BUN (BLOOD UREA NITROGEN) 12 MG/DL (6-23); CALCIUM, SERUM 9.3 MG/DL (8.5-10.4); CHLORIDE, SERUM 105 MMOL/L (96-112); CREATININE 0.58 MG/DL (0.55-1.02); GFR AFRICAN AMERICAN 114 ML/MIN (>=60); GFR NON AFRICAN AMERICAN 98 ML/MIN (>=60); GLUCOSE, SERUM 139 MG/DL (60-99); POTASSIUM, SERUM 4.1 MMOL/L (3.5-5.3); SODIUM, SERUM 143 MMOL/L (135-148)
[2017-03-04 06:34] LABS: CO2 (CARBON DIOXIDE) 29 MMOL/L (24-34)
[2017-03-04 08:10] LABS: A/G RATIO 0.8 (0.7-1.9); ALBUMIN 2.7 G/DL (3.5-5.0); GLOBULIN 3.6 G/DL (2.5-4.1); SGOT(AST) 35 U/L (5-40); SGPT(ALT) 81 U/L (5-65); TOTAL PROTEIN 6.3 G/DL (6.0-8.5)
[2017-03-04 08:12] LABS: ALKALINE PHOSPHATASE 334 U/L (45-117)
[2017-03-04] MEDS ORDERED: T PO (09:01)
[2017-03-04] MEDS ORDERED: CONSTULOSE PO (09:02)
[2017-03-04] MEDS ORDERED: PRIN20 PO (09:16)
[2017-03-04] MEDS ORDERED: NORCO1 TA1 PO (09:16)
[2017-06-05] MEDS ORDERED: PROAIR HFA INH (18:42)
[2017-06-05] MEDS ORDERED: NORV10 PO (18:43)
[2017-06-05] MEDS ORDERED: SYMBICORT 160/41 INH INH (18:43)
[2017-06-05] MEDS ORDERED: NEUR800 PO (18:44)
[2017-06-05] MEDS ORDERED: L40 PO (18:44)
[2017-06-05] MEDS ORDERED: GLUCOTRO10 PO (18:45)
[2017-06-05] MEDS ORDERED: LAMICTAL150 MG PO (18:46)
[2017-06-05] MEDS ORDERED: GLUCOPHAGE1000 MG PO (18:47)
[2017-06-05] MEDS ORDERED: ATV1 PO (18:47)
[2017-06-05] MEDS ORDERED: KLOR-CON M2020 MEQ PO (18:48)
[2017-06-05] MEDS ORDERED: PRAVAC PO (18:49)
[2017-06-05] MEDS ORDERED: SPIRIVA INH (18:50)
[2017-06-05] MEDS ORDERED: SEROQUEL XR400 MG PO (18:50)
[2017-06-08] MEDS ORDERED: HYDROCHLOROT25 MG (17:44)
[2017-06-08] MEDS ORDERED: DURICEF PO (17:45)
[2017-06-08] MEDS ORDERED: LEVEMFLXPN SC (17:46)
== END 2017-03-04 17:28 | disposition home or self-care (01) | DRG 445 ==
LOC: ER 19:21 → 4EA 22:40
PROVIDERS: Hospitalist; Internal Medicine; Internal Medicine Gastroenterology; Internal Medicine Pulmonary Disease; Nurse Practitioner; Nurse Practitioner Acute Care
PROC: 0F798DZ Dilation of Common Bile Duct with Intraluminal Device, Via Natural or Artificial Opening Endoscopic (ICD-10-PCS; principal; 2017-02-27)
PROC: 0FBD8ZX Excision of Pancreatic Duct, Via Natural or Artificial Opening Endoscopic, Diagnostic (ICD-10-PCS; 2017-02-27)
PROC: BF4CZZZ Ultrasonography of Hepatobiliary System, All (ICD-10-PCS; 2017-02-27)
DX: K83.1 Obstruction of bile duct (principal); Z68.41 Body mass index [BMI] 40.0-44.9, adult; Z99.81 Dependence on supplemental oxygen; J44.9 Chronic obstructive pulmonary disease, unspecified; F17.210 Nicotine dependence, cigarettes, uncomplicated; F31.9 Bipolar disorder, unspecified; I10 Essential (primary) hypertension; I73.9 Peripheral vascular disease, unspecified; E66.9 Obesity, unspecified
CPT/HCPCS: 71010; 74176; 74181; 74330; 76700; 80048; 80053; 80074; 80076; 80305; 80307; 81001; 82140; 82150; 82248; 82378; 82962; 83036; 83690; 83735; 84100; 85025; 85610; 85730; 86301; 86706; 87040; 87077; 87086; 87186; 88112; 88173; 88305; 93005; 94640; 96374; 99285; A9270-GY; C1725; C1769; C2625; J0330; J0360; J1200; J2250; J2405; J2550; J3010; J3475; Q9967

== ENCOUNTER 2017-03-09 20:54 | Emergency (ER) | payer BC, OTHER ==
[~2017-03-09 20:54] MED LIST changes: +BC HEADACHE PO; +CLEOCIN300 MG PO; +CONSTULOSE PO; +GLUCOPHAGE1000 MG PO; +GLUCOTRO10 PO; +KDUR20 PO; +NORCO1 TA1 PO; +PRIN20 PO
[2017-03-09 21:14] LABS: BASOPHILS 0.6 %; BASOPHILS ABSOLUTE 0.04 10/3/uL (0.0-0.16); EOSINOPHILS 2.2 %; EOSINOPHILS ABSOLUTE 0.15 10/3/uL (0.0-0.53); HEMOGLOBIN 12.8 g/dL (12.0-16.0); IMMATURE GRANULOCYTES 0.3 %; IMMATURE GRANULOCYTES ABSOLUTE 0.02 10/3/uL (0.0-0.11); LYMPHOCYTES 20.7 %; LYMPHOCYTES ABSOLUTE 1.39 10/3/uL (0.67-4.30); MEAN CORPUS HGB CONC 32.1 g/dL (32.0-36.0); MEAN CORPUSCULAR HEMOGLOB 30.1 pg (26.0-34.0); MEAN CORPUSCULAR VOLUME 93.9 fL (80-100); MEAN PLATELET VOLUME 10.3 fL (9.2-13.0); MONOCYTES 5.4 %; MONOCYTES ABSOLUTE 0.36 10/3/uL (0.21-1.20); NEUTROPHILS 70.8 %; NEUTROPHILS ABSOLUTE 4.74 10/3/uL (2.02-8.40); RBC DISTRIBUTION WIDTH 15.2 % (12.0-16.0); RED CELL COUNT 4.25 10/6/uL (4.0-5.6)
[2017-03-09 21:15] LABS: HEMATOCRIT 39.9 % (36.0-48.0); MANUAL DIFF NO %; PLATELET COUNT 270 10/3/uL (150-400); WHITE BLOOD CELLS 6.7 10/3/uL (4.5-10.5)
[2017-03-09 21:21] LABS: PROTIME (NOT ORD) 13.5 SEC (12.0-14.5)
[2017-03-09 21:25] LABS: ASCORBIC ACID (UR NOT ORDER) NEG (NEG); BILIRUBIN, URINE NEGATIVE (NEG); ER URINALYSIS TAT 0 Hrs 10 Mins; KETONE, URINE NEGATIVE (NEG); LEUKOCYTE ESTERASE(NOT OR TRACE (NEG); NITRITE (URINE) NEG (NEG); WBC (NOT ORDERED) (RFLEX) 1 (0-5)
[2017-03-09 21:32] LABS: BUN (BLOOD UREA NITROGEN) 12 MG/DL (6-23); CALCIUM, SERUM 8.9 MG/DL (8.5-10.4); CHEST PAIN PROFILE TAT 0 Hrs 23 Mins; CHLORIDE, SERUM 105 MMOL/L (96-112); CO2 (CARBON DIOXIDE) 31 MMOL/L (24-34); CREATININE 0.77 MG/DL (0.55-1.02); GFR AFRICAN AMERICAN 95 ML/MIN (>=60); GFR NON AFRICAN AMERICAN 82 ML/MIN (>=60); GLUCOSE, SERUM 123 MG/DL (60-99); POTASSIUM, SERUM 4.1 MMOL/L (3.5-5.3); SGOT(AST) 22 U/L (5-40); SGPT(ALT) 44 U/L (5-65); SODIUM, SERUM 140 MMOL/L (135-148); TOTAL PROTEIN 7.2 G/DL (6.0-8.5); TROPONIN I <0.02 NG/ML (<0.05)
[2017-03-09 21:36] LABS: ALBUMIN 3.3 G/DL (3.5-5.0); ALKALINE PHOSPHATASE 258 U/L (45-117); DIRECT BILIRUBIN 1.1 MG/DL (0.0-0.4); INDIRECT BILIRUBIN(NOT ORDER) 0.3 MG/DL (0.1-0.9); TOTAL BILIRUBIN 1.4 MG/DL (0-1.2)
[2017-06-05] MEDS ORDERED: PROAIR HFA INH (18:42)
[2017-06-05] MEDS ORDERED: SYMBICORT 160/41 INH INH (18:43)
[2017-06-05] MEDS ORDERED: NORV10 PO (18:43)
[2017-06-05] MEDS ORDERED: L40 PO (18:44)
[2017-06-05] MEDS ORDERED: NEUR800 PO (18:44)
[2017-06-05] MEDS ORDERED: GLUCOTRO10 PO (18:45)
[2017-06-05] MEDS ORDERED: LAMICTAL150 MG PO (18:46)
[2017-06-05] MEDS ORDERED: ATV1 PO (18:47)
[2017-06-05] MEDS ORDERED: GLUCOPHAGE1000 MG PO (18:47)
[2017-06-05] MEDS ORDERED: KLOR-CON M2020 MEQ PO (18:48)
[2017-06-05] MEDS ORDERED: PRAVAC PO (18:49)
[2017-06-05] MEDS ORDERED: SEROQUEL XR400 MG PO (18:50)
[2017-06-05] MEDS ORDERED: SPIRIVA INH (18:50)
[2017-06-08] MEDS ORDERED: HYDROCHLOROT25 MG (17:44)
[2017-06-08] MEDS ORDERED: DURICEF PO (17:45)
[2017-06-08] MEDS ORDERED: LEVEMFLXPN SC (17:46)
== END 2017-03-10 02:11 | disposition home or self-care (01) ==
LOC: ER 20:54
PROVIDERS: Emergency Medicine
DX: R10.9 Unspecified abdominal pain (principal); I10 Essential (primary) hypertension; F31.9 Bipolar disorder, unspecified; K83.1 Obstruction of bile duct; J44.9 Chronic obstructive pulmonary disease, unspecified; F17.200 Nicotine dependence, unspecified, uncomplicated; E11.9 Type 2 diabetes mellitus without complications; Z88.0 Allergy status to penicillin; Z88.2 Allergy status to sulfonamides; Z88.8 Allergy status to other drugs, medicaments and biological substances; Z88.6 Allergy status to analgesic agent; Z79.899 Other long term (current) drug therapy; Z79.84 Long term (current) use of oral hypoglycemic drugs; Z88.1 Allergy status to other antibiotic agents
CPT/HCPCS: 36600; 71010; 71260; 74177; 80048; 80076; 81001; 82330; 82803; 82947; 83690; 83735; 83880; 84132; 84295; 84484; 85014; 85025; 85610; 85730; 94640; 99285; A9270-GY; J2405; Q9967

== ENCOUNTER 2017-06-18 02:35 | Inpatient (IN) | payer BC, OTHER ==
[~2017-06-18] VITALS: Ht 167.6 cm; Wt 104.0 kg
--- NOTE | ~2017-06-18 | CN ---
Consultation Report [facility] [address] [place]. [address] NAME: EMMANUEL BAER : 51 STATUS : ADM Ave PAT#: [id number] AGE: 61 ADM/REG DATE : 06/18/17 MR#: [id number] REPORT SERV DATE: 06/19/17 DICTATED BY: ENRIQUE RUBIN DATE: 06/19/17 REPORT STATUS : Draft TRANSCRIBED BY: MODL DATE: 06/19/17 GI CONSULTATION DATE OF CONSULTATION: 06/19/2017 REASON FOR CONSULTATION: Evaluation and management of the patient for endoscopic ultrasound with fine-needle aspirate as well as ERCP with stent exchange. HISTORY OF PRESENT ILLNESS: Ms. Baer is a 61-year-old female patient of Dr. Tristan Tidwell, who was admitted on the 06/18/2017 with a chief complaint of confusion, falls, burning in the epigastric region. She has a recent diagnosis of suspected biliary carcinoma. She underwent ERCP with Dr. Tidwell on 03/02/2017 with placement of stent. Brushings showed atypia. Dr. Pulido then saw her on 03/02/2017 and did upper endoscopy with endoscopic ultrasound with fine-needle aspirate, no abnormal cells were seen on that cytology report. The patient has been in and out of the hospital since that point in time. She presented yesterday with confusion and increased falls. She complains of epigastric burning, that eating improves. She has had some loose stools. Her liver enzymes were markedly elevated with a total bilirubin of 2.5, alkaline phosphatase of 658, ALT 535, and AST of 777. She was seen and evaluated by Dr. Blanco who was on-call for Dr. Tidwell. He ordered a CT scan of the abdomen and pelvis and chest which have been taken, but are in pending status as well as consultation to Dr. Ruiz/Ashok for endoscopic ultrasound as well as ERCP with stent replacement. I have seen the patient. I have discussed this with her. She is agreeable to proceed. 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 Her CA-19-9 in February was elevated at 570, type 2 diabetes/uncontrolled, COPD, hypertension, peripheral vascular disease, tobacco abuse, bipolar disorder. SURGERIES: Include cholecystectomy, hysterectomy. FAMILY HISTORY: Noncontributory from a GI standpoint. SOCIAL HISTORY: Positive for tobacco. No alcohol. No illicits. ALLERGIES: ALLERGIES ARE PENICILLIN, TETRACYCLINE, SULFA, DEPAKOTE, NEOMYCIN, TRAMADOL, AND MIRTAZAPINE. HOME MEDICATIONS: ProAir HFA, Norvasc, BC Arthritis Powder, Symbicort, Lasix, Neurontin, Glucotrol, Levemir, Lamictal, Ativan, Glucophage, potassium, Pravachol, Seroquel, Spiriva. REVIEW OF SYSTEMS: A 10-point review of systems has been obtained with pertinent positives being addressed in the history of present illness. Consultation Report [facility] [address] [place]. [address] NAME: EMMANUEL BAER : 51 STATUS : ADM Ave PAT#: [id number] AGE: 61 ADM/REG DATE : 06/18/17 MR#: [id number] REPORT SERV DATE: 06/19/17 DICTATED BY: ENRIQUE RUBIN DATE: 06/19/17 REPORT STATUS : Draft TRANSCRIBED BY: DENIS DATE: 06/19/17 PHYSICAL EXAMINATION: VITAL SIGNS: Temperature 98.3, pulse 90, respirations of 16, and blood pressure 159/70. PERTINENT LABORATORY DATA: Sodium 138, potassium is 3.3, BUN is 5, creatinine 0.45. White count 3.7, hemoglobin 13.4, hematocrit 38.7. Total bilirubin 2.5, alkaline phosphatase 650, GGT 374, ALT 427, AST 328. PHYSICAL EXAMINATION: GENERAL: Reveals an alert, female, sitting up in bed, who is crying. She is cooperative, but she is in distress secondary to her complaints of epigastric burning. EYES: She has some very mild scleral icterus noted, but no obvious jaundice. HEAD EARS, EYES, NOSE, AND THROAT: Mild scleral icterus. Pupils are equal, round, reactive to light and accommodation. Normocephalic and atraumatic. NECK: Supple. No JVD. LUNGS: Diminished and coarse. CARDIOVASCULAR SYSTEM: Regular rate rhythm. ABDOMEN: Soft and obese. Mildly tender to palpation in the epigastric right upper quadrant. Active bowel sounds. No organomegaly. SKIN: Warm, dry, and intact. EXTREMITIES: No edema. Normal distal pulses. ASSESSMENT: 1. Epigastric abdominal pain/burning. 2. Presumed biliary carcinoma. 3. Elevated liver function tests. 4. History of bipolar disorder. 5. Type 2 diabetes. 6. Obesity. 7. Encephalopathy pain. PLAN: 1. Pain control. 2. ERCP with stent exchange, endoscopic ultrasound with tissue sampling on the 06/20/[address] Pulido. 3. We will hold her heparin at present. 4. Morning labs. 5. Other recommendations to follow endoscopy. JAZMÍN/DENIS DOREEN [place] Consultation Report [address] [facility] [address] NAME: EMMANUEL BAER : 51 STATUS : ADM Ave PAT#: [id number] AGE: 61 ADM/REG DATE : 06/18/17 MR#: [id number] REPORT SERV DATE: 06/19/17 DICTATED BY: ENRIQUE RUBIN DATE: 06/19/17 REPORT STATUS : Draft TRANSCRIBED BY: DENIS DATE: 06/19/17 / [id number] CC: MD Rosalba Segura II, M.D.
--- NOTE | ~2017-06-18 | EGD ---
EGD REPORT [facility] [address] [place] [address] NAME: RAMONA BAER : 51 STATUS : ADM Ave PAT#: [id number] AGE: 61 ADM/REG DATE : 06/18/17 MR#: [id number] REPORT SERV DATE: 06/20/17 DICTATED BY: GRANT LIMA DATE: 06/20/17 REPORT STATUS : Draft [facility]ANSCRIBED BY: [facility] DATE: 06/20/17 Endoscopy Center Patient Name: Ramona Baer Date of : 1955 Attending MD: GRANT LIMA MD Procedure Date No Time: 06/20/2017 Procedure: Upper EUS Indications: Suspected solid pancreatic neoplasm Referring MD: JUSTIN HOLLIDAY Medicines: Monitored Anesthesia Care, General Anesthesia Complications: No immediate complications. Estimated blood loss: Minimal. Procedure: Pre-Anesthesia Assessment: - ASA Grade Assessment: III - A patient with severe systemic disease. After obtaining informed consent, the endoscope was passed under direct vision. Throughout the procedure, the patient's blood pressure, pulse, and oxygen saturations were monitored continuously. The Endoscope was introduced through the mouth, and advanced to the second part of duodenum. The Endoscope was introduced through the mouth, and advanced to the second part of duodenum. The upper EUS was accomplished without difficulty. The patient tolerated the procedure well. Findings: Endosonographic Finding : One stent was visualized endosonographically in the common bile duct. Extension of the stent was noted in the common bile duct. There was dilation in the common bile duct which measured up to 12 mm. A round mass was identified in the pancreatic head. The mass was hypoechoic. The mass measured 34 mm by 28 mm in maximal cross-sectional diameter. The endosonographic borders were well-defined. Fine needle aspiration was performed. Color Doppler imaging was utilized prior to needle puncture to confirm a lack of significant vascular structures within the needle path. Eight passes were made with the 22 gauge needle using a transduodenal approach. Some passes were made with a stylet. A conservation or heritage architect was present and performed a preliminary cytologic examination. Preliminary cytology is suspicious for adenocarcinoma (final results are pending). Estimated blood loss was minimal. Endosonographic imaging of the visualized portion of the liver showed no abnormalities. No lymphadenopathy seen. A limited doppler examination was performed and revealed no significant vascular abnormalities. EGD REPORT [facility] [id number] [facility] [place]. [address] NAME: RAMONA BAER : 51 STATUS : ADM Ave PAT#: [id number] AGE: 61 ADM/REG DATE : 06/18/17 MR#: [id number] REPORT SERV DATE: 06/20/17 DICTATED BY: GRANT LIMA DATE: 06/20/17 REPORT STATUS : Draft TRANSCRIBED BY: [employer] DATE: 06/20/17 Impression: - One stent was visualized endosonographically in the common bile duct. - There was dilation in the common bile duct which measured up to 12 mm. - A mass was identified in the pancreatic head. Tissue was obtained from this exam. The preliminary diagnosis is highly suspicious for adenocarcinoma. This was staged T3 N0 Mx by endosonographic criteria. The staging applies if malignancy is confirmed. - A limited doppler examination was performed and revealed no significant vascular abnormalities. Recommendation: - Perform an ERCP today. - Refer to an oncologist at the next available appointment. Procedure Code(s): --- Professional --- 90128, Esophagogastroduodenoscopy, flexible, transoral; with transendoscopic ultrasound-guided intramural or transmural fine needle aspiration/biopsy(s) (includes endoscopic ultrasound examination of the esophagus, stomach, and either the duodenum or a surgically altered stomach where the jejunum is examined distal to the anastomosis) Diagnosis Code(s): --- Professional --- K83.8, Other specified diseases of biliary tract K86.8, Other specified diseases of pancreas CPT copyright 2013 [employer]. All rights reserved. The codes documented in this report are preliminary and upon surgical coder review may be revised to meet current compliance requirements. Grant Lima MD GRANT LIMA MD 06/20/2017 11:15 AM This report has been signed electronically. Number of Addenda: 0 Note Initiated On: 06/20/2017 8:24 AM Scope Withdrawal Time 0 hours 0 minutes 0 seconds [address] [place] [address]
--- NOTE | ~2017-06-18 | EGD ---
EGD REPORT [facility] [address] [place] [address] NAME: RAMONA BAER : 51 STATUS : ADM Ave PAT#: [id number] AGE: 61 ADM/REG DATE : 06/18/17 MR#: [id number] REPORT SERV DATE: 06/20/17 DICTATED BY: GRANT LIMA DATE: 06/20/17 REPORT STATUS : Draft TRANSCRIBED BY: [facility] DATE: 06/20/17 Endoscopy Center Patient Name: Ramona Baer Date of : 1955 Attending MD: GRANT LIMA MD Procedure Date No Time: 06/20/2017 Procedure: ERCP Indications: Jaundice, Malignant tumor of the head of pancreas Referring MD: JUSTIN HOLLIDAY Medicines: General Anesthesia, Monitored Anesthesia Care Complications: No immediate complications. Estimated blood loss: None Procedure: Pre-Anesthesia Assessment: - ASA Grade Assessment: III - A patient with severe systemic disease. After obtaining informed consent, the scope was passed under direct vision. Throughout the procedure, the patient's blood pressure, pulse, and oxygen saturations were monitored continuously. The Duodenoscope was introduced through the mouth, and advanced to the duodenum and used to inject contrast into the bile duct. The ERCP was accomplished without difficulty. The patient tolerated the procedure well. Findings: The neighborhood worker film was normal. The esophagus was successfully intubated under direct vision without detailed examination of the pharynx, larynx, and associated structures, and upper GI tract. The upper GI tract was grossly normal. One stent originating in the biliary tree was emerging from the major papilla. A 0.035 inch x 260 cm straight Dreamwire was passed into the biliary tree. One stent was removed from the biliary tree using a snare and sent for cytology. Using the sphinctertome over the previously placed wire, contrast was injected into the CBD showing dilation of the entire duct and debris in the distal end of the CBD. One 10 mm by 6 cm bare metal stent was placed into the common bile duct. Bile flowed through the stent. The stent was in good position. The endoscope was withdrawn from the patient. Impression: - One stent was removed from the biliary tree and replaced with a 10 x 60 mm SEMS. Recommendation: - Return patient to [facility] for [facility] care. - Clear liquid diet and then advance diet as tolerated by symptoms. - Further treatment per oncology - Further GI care per Dr Brown and/or Dr Tidwell. EGD REPORT [address] [address] NAME: RAMONA BAER : 51 STATUS : ADM Ave PAT#: [id number] AGE: 61 ADM/REG DATE : 06/18/17 MR#: [id number] REPORT SERV DATE: 06/20/17 DICTATED BY: GRANT LIMA DATE: 06/20/17 REPORT STATUS : Draft TRANSCRIBED BY: [facility] DATE: 06/20/17 Procedure Code(s): --- Professional --- 23069, Endoscopic retrograde cholangiopancreatography (ERCP); with removal and exchange of stent(s), biliary or pancreatic duct, including pre- and post-dilation and guide wire passage, when performed, including sphincterotomy, when performed, each stent exchanged Diagnosis Code(s): --- Professional --- Z96.89, Presence of other specified functional implants Z46.59, Encounter for fitting and adjustment of other gastrointestinal appliance and device R17, Unspecified jaundice C25.0, Malignant neoplasm of head of pancreas CPT copyright 2013 [employer]. All rights reserved. The codes documented in this report are preliminary and upon automotive internet sales consultant review may be revised to meet current compliance requirements. Grant Lima MD GRANT LIMA MD 06/20/2017 12:08 PM This report has been signed electronically. Number of Addenda: 0 Note Initiated On: 06/20/2017 8:24 AM Scope Withdrawal Time 0 hours 0 minutes 0 seconds [address] [place] [address]
--- NOTE | ~2017-06-18 | DS ---
Discharge Summary [facility] [address] [place]. [address] NAME: EMMANUEL BAER : 51 STATUS : DIS IN PAT#: [id number] AGE: 61 ADM/REG DATE : 06/18/17 MR#: [id number] REPORT SERV DATE: 06/23/17 DICTATED BY: YOVANI EAST II DATE: 06/22/17 REPORT STATUS : Draft TRANSCRIBED BY: MODL DATE: 06/22/17 ADMISSION DATE: 06/18/2017 DISCHARGE DATE: 06/22/2017 DISCHARGE DIAGNOSES: 1. Adenocarcinoma of the biliary tract. 2. Metabolic encephalopathy. 3. Hypertension. 4. Acute on chronic hypoxic respiratory failure, on home O2. 5. Diabetes mellitus type 2, uncontrolled. 6. Bipolar disorder. 7. Hypokalemia. CONSULTS: 1. Aníbal Cavazos M.D. with Radiation Oncology. 2. Brady Ramirez M.D. with [facility]. 3. Grant Pulido M.D. with GI. PROCEDURES: 1. ERCP with stent removal and replacement. 2. Biopsy of pancreatic head mass. BRIEF HISTORY OF PRESENT ILLNESS: The patient is a 61-year-old female with the above history, who presented to [facility] due to confusion and increased falls. Again this seemed somewhat secondary to medication induced as her mental status has since cleared since admission, the patient has been counseled on medication compliance. After admission the patient was previously scheduled to follow with Dr. Ruiz for ERCP and biopsy, so this was done this admission as a CT of the abdomen and pelvis showed minimally increased fullness and hypoenhancement of the pancreatic head concerning for possibly developing pancreatic head mass. Her T bilirubin and liver enzymes remained mildly elevated, but trended down after stent replacement removal. Pulmonary biopsies from the pancreatic mass appear consistent with adenocarcinoma. Dr. Ramirez did not think the patient is a surgical or chemotherapy candidate, and recommended Dr. Cavazos do palliative radiation which has been arranged. She has undergone simulation and will start radiation on 06/28/2017. Due to the patient's social situation home health will be arranged as well as transportation to get the patient to and from her treatments. At this point, the patient is otherwise stable for discharge. DISCHARGE MEDICATIONS: 1. Norvasc 10 mg p.o. daily. 2. Neurontin 800 mg p.o. four times a day. 3. Levemir 40 units subcu daily. 4. Lamictal 150 mg p.o. b.i.d. 5. Seroquel 400 mg p.o. q.h.s. 6. Spiriva one cap inhale daily. 7. Albuterol two puffs inhale b.i.d. p.r.n. Discharge Summary [address] [address] NAME: EMMANUEL BAER : 51 STATUS : DIS IN PAT#: [id number] AGE: 61 ADM/REG DATE : 06/18/17 MR#: [id number] REPORT SERV DATE: 06/23/17 DICTATED BY: YOVANI EAST II DATE: 06/22/17 REPORT STATUS : Draft TRANSCRIBED BY: DENIS DATE: 06/22/17 8. Symbicort two puffs inhale b.i.d. 9. Glipizide 1 mg p.o. q.12 hours. 10.Pravachol 20 mg p.o. q.h.s. 11.Potassium chloride 20 mEq p.o. daily. 12.Metformin 1000 mg p.o. q.12 hours. 13.Ativan 1-2 mg p.o. q.12 hours. 14.Lasix 40 mg p.o. daily p.r.n. swelling. 15.York 5/325 mg p.o. q.6 hours p.r.n. pain. DISCHARGE INSTRUCTIONS: The patient will follow with Dr. Cavazos in clinic on 06/28/2017, and with Dr. Ramirez in three months. JETHRO/DENIS Yovani East II, MD / [id number] CC: MD Rosalba Segura II, M.D.
--- NOTE | ~2017-06-18 | HP ---
History And Physical [place] [id number] [facility] [place]. [address] NAME: EMMANUEL BAER : 51 STATUS : ADM Ave PAT#: [id number] AGE: 61 ADM/REG DATE : 06/18/17 MR#: [id number] REPORT SERV DATE: 06/18/17 DICTATED BY: CHETAN FLYNN DATE: 06/18/17 REPORT STATUS : Draft TRANSCRIBED BY: MODL DATE: 06/18/17 DATE OF ADMISSION: 06/18/2017 CHIEF COMPLAINT: Confused and increased falls. HISTORY OF PRESENT ILLNESS: The patient is a 61-year-old female with recent diagnosis of suspected biliary carcinoma. Additionally, uncontrolled diabetes, obesity, noncompliance, bipolar disease, and COPD, who presents after being sent from home for concerns of increased confusion, decreased responses and increased falls and abdominal pain. When discussing with the patient, the patient reports that, although she has somewhat waxing and waning type mental status, she quickly falls asleep. Her main complaint is abdominal pain that has been all over in moderate severity, nonradiating. No chest pain, fever, chills, headache, or vomiting. Occasional nausea, weakness, and diarrhea, but no wheezing or palpitations. Symptoms of abdominal pain, but not worsened with palpitation, but there are no relieving symptoms either. The patient was to have followup for biopsy, but has not currently due for a followup yet. Incidentally, on the patient's labs, the patient is noted to have newly elevated LFTs, newly decreased leukocyte. REVIEW OF SYSTEMS: Review of systems, which were able to be obtained minimally due to mental status. The patient does deny fever or chills, but noted weakness. Does have some confusion in mental status. Denies any shortness of breath or palpitations. Does have abdominal pain with diarrhea. No nausea or vomiting. No new bleeding, bruising, or anxiety. Does have confusion. No myalgias. Arthralgias above baseline. No hematuria or problems urinating. No new rashes or bruising. No new sinuses or visual changes reported. Does have elevated blood sugars. 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 Cavazos and Dr. Ramirez; diabetes type 2, non-insulin dependent, but uncontrolled; COPD; hypertension; PVD; and tobacco use. PAST SURGICAL HISTORY: Cholecystectomy and hysterectomy. FAMILY HISTORY: Leukemia. SOCIAL HISTORY: Smokes half-pack cigarettes a day. Has special need son. No alcohol or illicits. ALLERGIES: PENICILLIN, TETRACYCLINE, SULFA, DEPAKOTE, NEOMYCIN, TRAMADOL, AND MIRTAZAPINE. HOME MEDICATIONS: Gabapentin 800, amlodipine, KCL, Lasix, meloxicam, lorazepam, Lamictal, pravastatin, metformin, Seroquel and Seroquel XR, Keppra, glipizide, and Lamictal. PHYSICAL EXAMINATION: VITAL SIGNS: The patient's blood pressure is 160/76, temperature 98.2, pulse 60, respirations 16, and O2 sats 95%. History And Physical [address] [address] NAME: EMMANUEL BAER : [birth year] STATUS : ADM vAe PAT#: [id number] AGE: 61 ADM/REG DATE : 06/18/17 MR#: [id number] REPORT SERV DATE: 06/18/17 DICTATED BY: CHETAN FLYNN DATE: 06/18/17 REPORT STATUS : Draft TRANSCRIBED BY: DENIS DATE: 06/18/17 GENERAL: Elderly, appears older than stated age. Slightly disheveled. ENT: Nares patent. Dry mucous membranes. Tongue midline. EYES: No scleral icterus. RESPIRATORY: Clear to auscultation. No wheezes, grossly but decreased lower lung bo. CV: Regular rate. No rubs. Trace edema. GI: Mild tenderness to palpation, but no point tenderness. : Deferred. MUSCULOSKELETAL: Moves all extremities x4. SKIN: Dry and warm. HEME: No bleeding or bruising. NEUROLOGIC: Sensory waxing waking, occasional episodes of lucidity and occasional episodes of being alert to person, time, and situation, but quickly goes into somnolence and then occasional episodes of disorientation and being woken up again. PSYCH: Unable to assess appropriately secondary to mental status, but noted to be calm. LABORATORY DATA: Urine drug screen noted for cannabinoids, but uniquely negative for benzos. Urinalysis is grossly within normal limits except greater than 500 glucose and ammonia of 32. CMP: Sodium 138, potassium 3.5, BUN and creatinine are 10 and 0.65, bicarb 24, chloride 104, and glucose 252. T bilirubin of 1.3, previously 0.7. LFTs; AST and ALT 777 and 535. Alkaline phosphatase of 587. Lipase 74. ABG: pH of 7.36, pCO2 of 43, pO2 of 60. Bicarb 23.8. CBC: WBC 2.7, H and H are 13.1 and 37.3, and platelets of 167. INR 1.2. ASSESSMENT AND PLAN: 1. Toxic encephalopathy. 2. Hypertension. 3. Elevated LFTs. 4. Abdominal pain, chronic, likely biliary carcinoma. 5. Diabetes type 2. 6. Chronic obstructive pulmonary disease. 7. Bipolar disease. 8. Mild hypokalemia. 9. Neutropenia. 10.THC positive. 11.Diarrhea. 12.Obesity. 13.Noncompliance. PLAN: 1. For toxic encephalopathy. Question secondary to medications, but decreased metabolism as the patient on somewhat higher risk medications with Seroquel and Ativan. We will need to reconsolidate medications; however, uniquely the patient's UDS is negative for benzos. The patient's blood sugar is elevated, is not hypoglycemic. Pneumonia is okay. We will monitor with serial neuro checks. If no improvement, may require CT. We will defer this to a.m. team. Additionally, check Tylenol level to monitor. 2. Hypertension p.r.n. Monitor with home medications and PRNs. 3. Elevated LFTs, at least 20 times elevated than prior discharge one to two weeks ago with abdominal pain, hep panel. Prior hepatitis panel is negative. Possible stent History And Physical [address] [address] NAME: EMMANUEL BAER : 51 STATUS : ADM Ave PAT#: [id number] AGE: 61 ADM/REG DATE : 06/18/17 MR#: [id number] REPORT SERV DATE: 06/18/17 DICTATED BY: CHETAN FLYNN DATE: 06/18/17 REPORT STATUS : Draft TRANSCRIBED BY: MODKayleen DATE: 06/18/17 changes. We will ask GI for additional opinion in addition for abdominal chronic pain. 4. Likely biliary carcinoma. Clinical diagnosis, recent hospital stays. 5. Diabetes type 2. A1c of 12.2. Sliding scale insulin, not on insulin, was on p.o. medications. However, most recent discharge was assisted with Levemir with Case Management due to social situation and financial resources. 6. Chronic obstructive pulmonary disease. O2 DuoNeb. 7. Bipolar disease, will likely need modifications of home medications as tolerated due to due to hepatic metabolism. 8. Mild hypokalemia, replaced. 9. Neutropenia, questionable secondary to tumor. We will need to monitor the patient has had prior episodes of neutropenia and has responded appropriately. No acute signs and symptoms of acute infection, except for recent diarrhea episode. 10.THC positive. When awake, we will need to encourage cessation. 11.Diarrhea. Check stool studies. No bowel movements witnessed in the emergency room; however, the patient does claim that she has had multiple days of diarrhea. 12.Obesity, needs to lose weight. Additionally for noncompliance, will likely need additional resources for medication prior to discharge. DDN/MODL Chetan Flynn MD / [id number] CC: Jonatan Faulkner M.D.
--- NOTE | ~2017-06-18 | EGD ---
EGD REPORT [facility] [address] [place] [address] NAME: RAOMNA BAER : 51 STATUS : ADM Ave PAT#: [id number] AGE: 61 ADM/REG DATE : 06/18/17 MR#: [id number] REPORT SERV DATE: 06/20/17 DICTATED BY: GRANT LIMA DATE: 06/20/17 REPORT STATUS : Draft [facility]: [facility] DATE: 06/20/17 [facility] Patient Name: Ramona Baer Date of : 1955 Attending MD: GRANT LIMA MD Procedure Date No Time: 06/20/2017 Procedure: ERCP Indications: Jaundice, Malignant tumor of the head of pancreas Referring MD: JUSTIN HOLLIDAY Medicines: General Anesthesia, Monitored Anesthesia Care Complications: No immediate complications. Estimated blood loss: None Procedure: Pre-Anesthesia Assessment: - ASA Grade Assessment: III - A patient with severe systemic disease. After obtaining informed consent, the scope was passed under direct vision. Throughout the procedure, the patient's blood pressure, pulse, and oxygen saturations were monitored continuously. The Duodenoscope was introduced through the mouth, and advanced to the duodenum and used to inject contrast into the bile duct. The ERCP was accomplished without difficulty. The patient tolerated the procedure well. Findings: The thermite bomb loader film was normal. The esophagus was successfully intubated under direct vision without detailed examination of the pharynx, larynx, and associated structures, and upper GI tract. The upper GI tract was grossly normal. One stent originating in the biliary tree was emerging from the major papilla. A 0.035 inch x 260 cm straight Dreamwire was passed into the biliary tree. One stent was removed from the biliary tree using a snare and sent for cytology. Using the sphinctertome over the previously placed wire, contrast was injected into the CBD showing dilation of the entire duct and debris in the distal end of the CBD. One 10 mm by 6 cm bare metal stent was placed into the common bile duct. Bile flowed through the stent. The stent was in good position. The endoscope was withdrawn from the patient. Impression: - One stent was removed from the biliary tree and replaced with a 10 x 60 mm SEMS. Recommendation: - Return patient to [facility] for ongoing care. - Clear liquid diet and then advance diet as tolerated by symptoms. - Further treatment per oncology - Further GI care per Dr Brown and/or Dr Tidwell. EGD REPORT [address] [address] NAME: RAMONA BAER : 51 STATUS : ADM Ave PAT#: [id number] AGE: 61 ADM/REG DATE : 06/18/17 MR#: [id number] REPORT SERV DATE: 06/20/17 DICTATED BY: GRANT LIMA DATE: 06/20/17 REPORT STATUS : Draft [facility]ANSCRIBED [facility]: [facility] DATE: 06/20/17 Procedure Code(s): --- Professional --- 38655, Endoscopic retrograde cholangiopancreatography (ERCP); with removal and exchange of stent(s), biliary or pancreatic duct, including pre- and post-dilation and guide wire passage, when performed, including sphincterotomy, when performed, each stent exchanged Diagnosis Code(s): --- Professional --- Z96.89, Presence of other specified functional implants Z46.59, Encounter for fitting and adjustment of other gastrointestinal appliance and device R17, Unspecified jaundice C25.0, Malignant neoplasm of head of pancreas CPT copyright 2013 [employer]. All rights reserved. The codes documented in this report are preliminary and upon hcc coders review may be revised to meet current compliance requirements. Grant Lima MD GRANT LIMA MD 06/20/2017 12:08 PM This report has been signed electronically. Number of Addenda: 0 Note Initiated On: 06/20/2017 8:24 AM Scope Withdrawal Time 0 hours 0 minutes 0 seconds [address] [place] [address]
[~2017-06-18 02:35] MED LIST changes: +DURICEF PO; +HYDROCHLOROT25 MG; +LEVEMFLXPN SC
[2017-06-18 03:50] LABS: BASOPHILS 0.4 %; BASOPHILS ABSOLUTE 0.01 10/3/uL (0.0-0.16); EOSINOPHILS ABSOLUTE 0.08 10/3/uL (0.0-0.53); IMMATURE GRANULOCYTES 0.4 %; IMMATURE GRANULOCYTES ABSOLUTE 0.01 10/3/uL (0.0-0.11); LYMPHOCYTES 35.2 %; LYMPHOCYTES ABSOLUTE 0.94 10/3/uL (0.67-4.30); MEAN CORPUS HGB CONC 35.1 g/dL (32.0-36.0); MEAN CORPUSCULAR HEMOGLOB 30.7 pg (26.0-34.0); MEAN CORPUSCULAR VOLUME 87.4 fL (80-100); MONOCYTES 8.2 %; MONOCYTES ABSOLUTE 0.22 10/3/uL (0.21-1.20); NEUTROPHILS 52.8 %; NEUTROPHILS ABSOLUTE 1.41 10/3/uL (2.02-8.40); PLATELET COUNT 167 10/3/uL (150-400); RBC DISTRIBUTION WIDTH 12.6 % (12.0-16.0)
[2017-06-18 03:51] LABS: ER CBC TAT 0 Hrs 00 MinsNP; HEMATOCRIT 37.3 % (36.0-48.0); HEMOGLOBIN 13.1 g/dL (12.0-16.0); MANUAL DIFF NO %; RED CELL COUNT 4.27 10/6/uL (4.0-5.6); WHITE BLOOD CELLS 2.7 10/3/uL (4.5-10.5)
[2017-06-18 03:57] LABS: INTERNATIONAL NORMAL RATI 1.2 UNITS (-); PARTIAL THROMBO TIME 29.3 SEC (22.5-37.2); PROTIME (NOT ORD) 14.7 SEC (12.0-14.5)
[2017-06-18 04:03] LABS: BE (BASE EXCESS) -1.7 MEQ/L (0 +/- 2.5); CARBOXYHEMOGLOBIN 8.2 % (0-3); HCO3 (ACTUAL BICARBONATE) 23.8 MEQ/L (23-27); HEMOBLOGIN CONTENT 13.6 G/DL (12-16); INSTRUMENT SERIAL # 8087; METHEMOGLOBIN 0.2 % (0-3); PCO2 (CO2 TENSION) 43 MMHG (35-45); PO2 (O2 TENSION) 60 MMHG (79-93); pH 7.36 (7.37-7.43)
[2017-06-18 04:04] LABS: SAMPLE Arterial
[2017-06-18 04:06] LABS: A/G RATIO 0.8 (0.7-1.9); ALBUMIN 2.8 G/DL (3.5-5.0); CALCIUM, SERUM 8.8 MG/DL (8.5-10.4); CHLORIDE, SERUM 106 MMOL/L (96-112); CO2 (CARBON DIOXIDE) 24 MMOL/L (24-34); CREATININE 0.65 MG/DL (0.55-1.02); GFR AFRICAN AMERICAN 110 ML/MIN (>=60); GFR NON AFRICAN AMERICAN 94 ML/MIN (>=60); GLOBULIN 3.4 G/DL (2.5-4.1); POTASSIUM, SERUM 3.5 MMOL/L (3.5-5.3); SGOT(AST) 777 U/L (5-40); SGPT(ALT) 535 U/L (5-65); SODIUM, SERUM 138 MMOL/L (135-148); TOTAL PROTEIN 6.2 G/DL (6.0-8.5)
[2017-06-18 04:07] LABS: ALKALINE PHOSPHATASE 587 U/L (45-117); BUN (BLOOD UREA NITROGEN) 10 MG/DL (6-23); GLUCOSE, SERUM 252 MG/DL (60-99); TOTAL BILIRUBIN 1.3 MG/DL (0-1.2)
[2017-06-18 04:23] LABS: ASCORBIC ACID (UR NOT ORDER) NEG (NEG); BILIRUBIN, URINE NEGATIVE (NEG); ER URINALYSIS TAT 0 Hrs 00 Mins; KETONE, URINE NEGATIVE (NEG); LEUKOCYTE ESTERASE(NOT OR NEG (NEG); NITRITE (URINE) NEG (NEG); WBC (NOT ORDERED) (RFLEX) < 1 (0-5)
[2017-06-18 04:36] LABS: AMPHETAMINES (NOT ORD) NEG (NEG); BARBITURATES (NOT ORDERED NEG (NEG); BENZODIAZEPINES (NOT ORD) NEG (NEG); CANNABINOIDS (THC) POS (NEG); COCAINE (NOT ORDERED) NEG (NEG); OPIATES NEG (NEG); PHENCYCLIDINE(PCP) NEG (NEG)
[2017-06-18 04:37] LABS: TRICYCLICS NEG (NEG)
[2017-06-18] MEDS ORDERED: *UNABLE2 (06:01)
[2017-06-18] MEDS ORDERED: SEROQUEL XR400 MG PO (14:56)
[2017-06-18] MEDS ORDERED: LAMICTAL150 MG PO (14:56)
[2017-06-18] MEDS ORDERED: PRAVAC PO (14:57)
[2017-06-18] MEDS ORDERED: NEUR800 PO (14:57)
[2017-06-18] MEDS ORDERED: GLUCOTRO10 PO (14:57)
[2017-06-18] MEDS ORDERED: NORV10 PO (14:58)
[2017-06-18] MEDS ORDERED: GLUCOPHAGE1000 MG PO (14:58)
[2017-06-18] MEDS ORDERED: KLOR-CON M2020 MEQ PO (14:58)
[2017-06-18] MEDS ORDERED: BC ARTHRITIS P1 EACH PO (14:59)
[2017-06-18] MEDS ORDERED: ATV1 PO (14:59)
[2017-06-18] MEDS ORDERED: L40 PO (14:59)
[2017-06-18] MEDS ORDERED: SPIRIVA INH (15:00)
[2017-06-18] MEDS ORDERED: PROAIR HFA INH (15:00)
[2017-06-18] MEDS ORDERED: LEVEMIR SC (15:00)
[2017-06-18] MEDS ORDERED: SYMBICORT 160/41 INH INH (15:00)
[2017-06-19 05:09] LABS: A/G RATIO 0.8 (0.7-1.9); ALBUMIN 2.7 G/DL (3.5-5.0); CALCIUM, SERUM 8.5 MG/DL (8.5-10.4); CHLORIDE, SERUM 107 MMOL/L (96-112); CO2 (CARBON DIOXIDE) 22 MMOL/L (24-34); CREATININE 0.45 MG/DL (0.55-1.02); GFR AFRICAN AMERICAN 124 ML/MIN (>=60); GFR NON AFRICAN AMERICAN 107 ML/MIN (>=60); GLOBULIN 3.6 G/DL (2.5-4.1); SGPT(ALT) 427 U/L (5-65); SODIUM, SERUM 138 MMOL/L (135-148); TOTAL PROTEIN 6.3 G/DL (6.0-8.5)
[2017-06-19 05:12] LABS: BUN (BLOOD UREA NITROGEN) 5 MG/DL (6-23); GLUCOSE, SERUM 141 MG/DL (60-99); POTASSIUM, SERUM 3.3 MMOL/L (3.5-5.3); TOTAL BILIRUBIN 2.5 MG/DL (0-1.2)
[2017-06-19 05:13] LABS: ALKALINE PHOSPHATASE 650 U/L (45-117); SGOT(AST) 328 U/L (5-40)
[2017-06-19 06:24] LABS: BASOPHILS 0.3 %; BASOPHILS ABSOLUTE 0.01 10/3/uL (0.0-0.16); EOSINOPHILS 1.9 %; EOSINOPHILS ABSOLUTE 0.07 10/3/uL (0.0-0.53); HEMATOCRIT 38.7 % (36.0-48.0); HEMOGLOBIN 13.4 g/dL (12.0-16.0); IMMATURE GRANULOCYTES 0.3 %; IMMATURE GRANULOCYTES ABSOLUTE 0.01 10/3/uL (0.0-0.11); LYMPHOCYTES 22.5 %; LYMPHOCYTES ABSOLUTE 0.84 10/3/uL (0.67-4.30); MEAN CORPUS HGB CONC 34.6 g/dL (32.0-36.0); MEAN CORPUSCULAR HEMOGLOB 29.9 pg (26.0-34.0); MEAN CORPUSCULAR VOLUME 86.4 fL (80-100); MEAN PLATELET VOLUME 9.7 fL (9.2-13.0); MONOCYTES 9.6 %; MONOCYTES ABSOLUTE 0.36 10/3/uL (0.21-1.20); NEUTROPHILS 65.4 %; NEUTROPHILS ABSOLUTE 2.45 10/3/uL (2.02-8.40); PLATELET COUNT 162 10/3/uL (150-400); RBC DISTRIBUTION WIDTH 13.1 % (12.0-16.0); RED CELL COUNT 4.48 10/6/uL (4.0-5.6); WHITE BLOOD CELLS 3.7 10/3/uL (4.5-10.5)
[2017-06-19 06:25] LABS: MANUAL DIFF NO %
[2017-06-20 05:00] LABS: BASOPHILS 0.2 %; BASOPHILS ABSOLUTE 0.01 10/3/uL (0.0-0.16); EOSINOPHILS 1.9 %; EOSINOPHILS ABSOLUTE 0.08 10/3/uL (0.0-0.53); HEMOGLOBIN 12.6 g/dL (12.0-16.0); IMMATURE GRANULOCYTES 0.5 %; IMMATURE GRANULOCYTES ABSOLUTE 0.02 10/3/uL (0.0-0.11); LYMPHOCYTES 24.3 %; LYMPHOCYTES ABSOLUTE 1.02 10/3/uL (0.67-4.30); MEAN CORPUS HGB CONC 33.2 g/dL (32.0-36.0); MEAN CORPUSCULAR HEMOGLOB 29.5 pg (26.0-34.0); MEAN PLATELET VOLUME 9.5 fL (9.2-13.0); MONOCYTES 9.5 %; NEUTROPHILS 63.6 %; NEUTROPHILS ABSOLUTE 2.67 10/3/uL (2.02-8.40); PLATELET COUNT 158 10/3/uL (150-400); RBC DISTRIBUTION WIDTH 13.4 % (12.0-16.0); RED CELL COUNT 4.27 10/6/uL (4.0-5.6); WHITE BLOOD CELLS 4.2 10/3/uL (4.5-10.5)
[2017-06-20 05:01] LABS: MANUAL DIFF NO %
[2017-06-20 05:05] LABS: INTERNATIONAL NORMAL RATI 1.2 UNITS (-); PROTIME (NOT ORD) 14.7 SEC (12.0-14.5)
[2017-06-20 05:16] LABS: A/G RATIO 0.7 (0.7-1.9); ALBUMIN 2.5 G/DL (3.5-5.0); BUN (BLOOD UREA NITROGEN) 5 MG/DL (6-23); CALCIUM, SERUM 8.6 MG/DL (8.5-10.4); CHLORIDE, SERUM 107 MMOL/L (96-112); CO2 (CARBON DIOXIDE) 24 MMOL/L (24-34); CREATININE 0.52 MG/DL (0.55-1.02); GFR AFRICAN AMERICAN 118 ML/MIN (>=60); GFR NON AFRICAN AMERICAN 102 ML/MIN (>=60); GLOBULIN 3.5 G/DL (2.5-4.1); GLUCOSE, SERUM 139 MG/DL (60-99); POTASSIUM, SERUM 3.3 MMOL/L (3.5-5.3); SGOT(AST) 113 U/L (5-40); SGPT(ALT) 290 U/L (5-65); SODIUM, SERUM 140 MMOL/L (135-148)
[2017-06-20 05:19] LABS: ALKALINE PHOSPHATASE 618 U/L (45-117); DIRECT BILIRUBIN 0.6 MG/DL (0.0-0.4); INDIRECT BILIRUBIN(NOT ORDER) 0.7 MG/DL (0.1-0.9); TOTAL BILIRUBIN 1.3 MG/DL (0-1.2)
[2017-06-21 07:23] LABS: BASOPHILS 0.2 %; BASOPHILS ABSOLUTE 0.01 10/3/uL (0.0-0.16); EOSINOPHILS 0.2 %; EOSINOPHILS ABSOLUTE 0.01 10/3/uL (0.0-0.53); HEMATOCRIT 36.1 % (36.0-48.0); HEMOGLOBIN 12.1 g/dL (12.0-16.0); IMMATURE GRANULOCYTES 0.4 %; IMMATURE GRANULOCYTES ABSOLUTE 0.02 10/3/uL (0.0-0.11); LYMPHOCYTES 18.9 %; LYMPHOCYTES ABSOLUTE 0.92 10/3/uL (0.67-4.30); MEAN CORPUS HGB CONC 33.5 g/dL (32.0-36.0); MEAN CORPUSCULAR HEMOGLOB 30.1 pg (26.0-34.0); MEAN CORPUSCULAR VOLUME 89.8 fL (80-100); MEAN PLATELET VOLUME 9.3 fL (9.2-13.0); MONOCYTES 8.2 %; NEUTROPHILS 72.1 %; NEUTROPHILS ABSOLUTE 3.51 10/3/uL (2.02-8.40); PLATELET COUNT 148 10/3/uL (150-400); RBC DISTRIBUTION WIDTH 13.6 % (12.0-16.0); RED CELL COUNT 4.02 10/6/uL (4.0-5.6); WHITE BLOOD CELLS 4.9 10/3/uL (4.5-10.5)
[2017-06-21 07:24] LABS: MANUAL DIFF NO %
[2017-06-21 07:41] LABS: A/G RATIO 0.7 (0.7-1.9); ALBUMIN 2.4 G/DL (3.5-5.0); ALKALINE PHOSPHATASE 565 U/L (45-117); BUN (BLOOD UREA NITROGEN) 9 MG/DL (6-23); CALCIUM, SERUM 8.6 MG/DL (8.5-10.4); CHLORIDE, SERUM 104 MMOL/L (96-112); CO2 (CARBON DIOXIDE) 26 MMOL/L (24-34); CREATININE 0.65 MG/DL (0.55-1.02); GFR AFRICAN AMERICAN 110 ML/MIN (>=60); GFR NON AFRICAN AMERICAN 94 ML/MIN (>=60); GLOBULIN 3.4 G/DL (2.5-4.1); GLUCOSE, SERUM 268 MG/DL (60-99); POTASSIUM, SERUM 4.3 MMOL/L (3.5-5.3); SGOT(AST) 68 U/L (5-40); SGPT(ALT) 197 U/L (5-65); SODIUM, SERUM 137 MMOL/L (135-148); TOTAL BILIRUBIN 1.1 MG/DL (0-1.2); TOTAL PROTEIN 5.8 G/DL (6.0-8.5)
[2017-06-22 05:13] LABS: BASOPHILS 0.2 %; BASOPHILS ABSOLUTE 0.01 10/3/uL (0.0-0.16); EOSINOPHILS 1.5 %; EOSINOPHILS ABSOLUTE 0.08 10/3/uL (0.0-0.53); HEMATOCRIT 39.7 % (36.0-48.0); HEMOGLOBIN 12.9 g/dL (12.0-16.0); IMMATURE GRANULOCYTES 0.4 %; IMMATURE GRANULOCYTES ABSOLUTE 0.02 10/3/uL (0.0-0.11); LYMPHOCYTES 22.6 %; LYMPHOCYTES ABSOLUTE 1.18 10/3/uL (0.67-4.30); MEAN CORPUS HGB CONC 32.5 g/dL (32.0-36.0); MEAN CORPUSCULAR HEMOGLOB 29.9 pg (26.0-34.0); MEAN CORPUSCULAR VOLUME 91.9 fL (80-100); MEAN PLATELET VOLUME 9.6 fL (9.2-13.0); MONOCYTES 8.1 %; MONOCYTES ABSOLUTE 0.42 10/3/uL (0.21-1.20); NEUTROPHILS 67.2 %; PLATELET COUNT 162 10/3/uL (150-400); RBC DISTRIBUTION WIDTH 13.5 % (12.0-16.0); RED CELL COUNT 4.32 10/6/uL (4.0-5.6); WHITE BLOOD CELLS 5.2 10/3/uL (4.5-10.5)
[2017-06-22 05:20] LABS: MANUAL DIFF NO %
[2017-06-22 05:37] LABS: A/G RATIO 0.8 (0.7-1.9); ALBUMIN 2.7 G/DL (3.5-5.0); BUN (BLOOD UREA NITROGEN) 7 MG/DL (6-23); CALCIUM, SERUM 8.7 MG/DL (8.5-10.4); CHLORIDE, SERUM 100 MMOL/L (96-112); CO2 (CARBON DIOXIDE) 29 MMOL/L (24-34); CREATININE 0.68 MG/DL (0.55-1.02); GFR AFRICAN AMERICAN 108 ML/MIN (>=60); GFR NON AFRICAN AMERICAN 93 ML/MIN (>=60); GLOBULIN 3.4 G/DL (2.5-4.1); POTASSIUM, SERUM 3.8 MMOL/L (3.5-5.3); SGOT(AST) 44 U/L (5-40); SGPT(ALT) 163 U/L (5-65); SODIUM, SERUM 135 MMOL/L (135-148); TOTAL BILIRUBIN 0.7 MG/DL (0-1.2); TOTAL PROTEIN 6.1 G/DL (6.0-8.5)
[2017-06-22 05:38] LABS: ALKALINE PHOSPHATASE 532 U/L (45-117); GLUCOSE, SERUM 167 MG/DL (60-99)
[2017-06-22 06:12] LABS: PROCALCITONIN 0.08 ng/mL (<0.5)
[2017-06-22] MEDS ORDERED: NORCO1 TA1 PO (11:13)
== END 2017-06-22 13:10 | disposition home health service (06) | DRG 435 ==
LOC: ER 02:35 → 4EA 06:14 → ENPENDDIS 06:14 → 4EA 06-22 13:10
PROVIDERS: Internal Medicine Gastroenterology; Nurse Practitioner Acute Care; Nurse Practitioner Adult Health; Nurse Practitioner Family
PROC: 0FPB8DZ Removal of Intraluminal Device from Hepatobiliary Duct, Via Natural or Artificial Opening Endoscopic (ICD-10-PCS; principal; 2017-06-20 10:32)
PROC: 0F798DZ Dilation of Common Bile Duct with Intraluminal Device, Via Natural or Artificial Opening Endoscopic (ICD-10-PCS; 2017-06-20 10:32)
DX: C24.9 Malignant neoplasm of biliary tract, unspecified (principal); J96.21 Acute and chronic respiratory failure with hypoxia; G93.41 Metabolic encephalopathy; Z99.81 Dependence on supplemental oxygen; E11.65 Type 2 diabetes mellitus with hyperglycemia; I10 Essential (primary) hypertension; J44.9 Chronic obstructive pulmonary disease, unspecified; F31.9 Bipolar disorder, unspecified; E87.6 Hypokalemia; E66.9 Obesity, unspecified; I73.9 Peripheral vascular disease, unspecified; F17.210 Nicotine dependence, cigarettes, uncomplicated; Z91.19 Patient's noncompliance with other medical treatment and regimen; Z90.710 Acquired absence of both cervix and uterus; Z90.49 Acquired absence of other specified parts of digestive tract; Z88.0 Allergy status to penicillin; Z88.1 Allergy status to other antibiotic agents; Z88.2 Allergy status to sulfonamides; Z88.8 Allergy status to other drugs, medicaments and biological substances; Z91.81 History of falling; Z79.899 Other long term (current) drug therapy
CPT/HCPCS: 36600; 71010; 71260; 74020; 74178; 77334; 80053; 80305; 81001; 82140; 82248; 82805; 82962; 83690; 83880; 84145; 85025; 85610; 85730; 87328; 87329; 87493; 87493-59; 88172; 88173; 88305; 94640; 99285; A9270-GY; C1769; C1876; J0360; J1170; J1940; J2250; J2370; J2405; J2710; J3010; Q9967